=== PATIENT | female | born 1945 | race Caucasian/White ===

== ENCOUNTER 2017-04-27 11:43 | Inpatient (IN) | payer MEDICARE, OTHER ==
[2017-04-27] VITALS (8 sets, daily range): BP systolic 117–158; BP diastolic 55–71; PULSE 59–65; RESP 16–20; TEMP 97.9–100.6; O2SAT 99–100
[~2017-04-27] VITALS: Ht 157.5 cm; Wt 96.9 kg
[~2017-04-27 11:43] MED LIST: COUM5TAB PO; DUONI NEB; FERR324T4 PO; FURO20 PO; GLIM2TAB PO; LISI2.5T3 PO; METO50TA PO; NORC7.5T PO; PROM25SU8 PO; PROT40TA PO; PROZ20CA11 PO; PROZ40CA PO; SPIR50TA21 PO
[2017-04-27] MEDS ORDERED: SODIUM CHLOR 0.9% 1000 ML INJ 1,000 ML IV SCH (12:13)
--- NOTE | 2017-04-27 12:20 | PD ---
HPI Chief Complaint: fever, left lower extremity pain Time Seen by Provider: 12:07 Travel History International Travel<30 days: No Contact w/Intl Traveler<30days: No Traveled to known affect area: No History of Present Illness HPI This is a 71-year-old female who presents via EMS for evaluation. She is currently a resident of [facility]. According to EMS report the patient was found with a questionable left-sided facial droop by her nurse this morning. EMS did not appreciate any facial droop or change from her baseline neurologic status. She did have a elevated temperature of 99.6 as well as complaints of left lower extremity redness and pain. Upon questioning the patient reports that her left leg is been hurting her for the past few weeks. She does have a temperature 100.6 here. She is also had a cough for 1 month. Denies abdominal pain, nausea or vomiting, headache. No other complaints. The family members arrived shortly after examination. They report that the patient has been having generalized weakness for the past week. She has also seemed more confused, forgetful over the past several days as well. They report her PCP is Dr. Villar. [facility] Past Medical History Hx Anticoagulant Therapy: Yes (coumadin) Arthritis: Yes Autoimmune Disease: Yes (FIBROMYALGIA) Anxiety: Yes Depression: Yes Heart Rhythm Problems: Yes (PAT, not since her AICD meds) Cancer: No Cardiovascular Problems: Yes (htn; defib; gayle 2014) Congestive Heart Failure: Yes COPD: Yes Cerebrovascular Accident: Yes (questionable) Diabetes: Yes (type 2) Diminished Hearing: No Endocrine: Yes Glaucoma: Yes Genitourinary: Yes ("watching kidney function and sched for liver ultrasound Th) Hypertension: Yes Musculoskeletal: Yes Neurologic: Yes Psychiatric: No Reproductive: No Respiratory: Yes (copd. on 2l n/c at night) Ulcer: Yes Menopausal: Yes Past Surgical History AICD: Yes (new this year) Appendectomy: Yes Cardiac Surgery: Yes (AICD last year by Dr Borrero) Cholecystectomy: Yes Gynecologic Surgery: Yes (hysterectomy) Hysterectomy: Yes ( 30 YRS AGO) Pacemaker: Yes Social History Alcohol Use: Yes (socially) Tobacco Use: No Substance Use: No Allergies-Medications (Allergen,Severity, Reaction): Coded Allergies: No Known Allergies (Verified , 08/14/16) Reported Meds & Prescriptions Reported Meds & Active Scripts Active Reported Zofran (Ondansetron HCl) 4 Mg Tab 4 Mg PO Q6HR PRN Guaifenesin-Dm Liq (Guaifenesin/Dextromethorphan) 100-10 Mg/5 Ml Syrp 10 Ml PO Q6HR PRN Sugar Free [place] (Hydrocodone-Acetaminophen) 7.5-325 mg Tab 1 Tab PO Q4H PRN Duoneb (Ipratropium-Albuterol Neb) 0.5-2.5 Mg/3 Ml Neb 3 Ml NEB Q6HR [address] (Ferrous Sulfate) 325 Mg Tabdr 325 Mg PO TID Augmentin (Amoxicillin-Clavulanate) 500-125 mg Tab 1 Tab PO TID 10 Days Minocin (Minocycline HCl) 100 Mg Cap 100 Mg PO BID 42 Days X 6 WEEKS Metoprolol Tartrate 25 Mg Tab 25 Mg PO Q12HR Humalog Inj (Insulin Human Lispro) 1,000 Unit/10 Ml Vial 2-10 Units SQ BID Sliding Scale: if 151-200=2 units, call MD if <70, 201-250=4 units, 251-300=6 units, 301-350=8 units, 351-400=10 units, call MD if >401; twice a day before breakfast and at bedtime Colace (Docusate Sodium) 100 Mg Capsule 100 Mg PO Q12HR Diff-Stat (Probiotic Product) 1 Cap Cap 1 Cap PO BID 60 Days Eliquis (Apixaban) 2.5 Mg Tab 2.5 Mg PO BID Xanax (Alprazolam) 0.5 Mg Tab 0.5 Mg PO HS Hold for sedation Xalatan Opth Drops (Latanoprost) 0.005% Drops 1 Drop EACH EYE HS Tradjenta (Linagliptin) 5 Mg Tab 5 Mg PO DAILY Prozac (Fluoxetine HCl) 20 Mg Cap 40 Mg PO HS Potassium Chloride ER (Potassium Chloride) 10 Meq Cap 10 Meq PO DAILY Multi-Vitamin/Minerals (Multiple Vitamins W/ Minerals) 1 Tab Tab 1 Tab PO DAILY Miralax Powder (Polyethylene Glycol 3350 Powder) 17 Gm Powd 17 Gm PO DAILY Mix and dissolve one measuring capful (17 grams) in water or juice. Magnesium Oxide 500 Mg Tab 500 Mg PO DAILY Levothyroxine (Levothyroxine Sodium) 112 Mcg Tab 112 Mcg PO DAILY Lasix (Furosemide) 20 Mg Tab 20 Mg PO DAILY Ergocalciferol 50,000 Unit Cap 50,000 Units PO WEEKLY Saturdays Shadieddita DR (Duloxetine HCl) 30 Mg Capdr 30 Mg PO DAILY Vitamin D3 (Cholecalciferol) 1,000 Unit Tab 2,000 Units PO DAILY Review of Systems Except as stated in HPI: all other systems reviewed are Neg Physical Exam Narrative GENERAL: Well-developed well-nourished female in no acute distress. Alert and oriented to person, place but not time. SKIN: Warm and dry. The patient has erythema on the left lower extremity. She has a wound with a dressing in the left groin region. There is no purulent drainage. HEAD: Atraumatic. Normocephalic. EYES: Pupils equal and round. No scleral icterus. No injection or drainage. ENT: No nasal bleeding or discharge. Mucous membranes pink and moist. NECK: Trachea midline. No JVD. CARDIOVASCULAR: Regular rate and rhythm. No murmur appreciated. RESPIRATORY: No accessory muscle use. Clear to auscultation. Breath sounds equal bilaterally. GASTROINTESTINAL: Abdomen soft, non-tender, nondistended. Hepatic and splenic margins not palpable. MUSCULOSKELETAL: No obvious deformities. No clubbing. No cyanosis. No edema. NEUROLOGICAL: Awake and alert. No obvious cranial nerve deficits. Motor grossly within normal limits. Normal speech. No facial droop. No upper extremity drift. Decreased enamel applier strength left hand secondary to a previous hand injury, baseline. Data Data Last Documented VS Vital Signs Date Time Temp Pulse Resp B/P Pulse Ox O2 Delivery O2 Flow Rate FiO2 04/27/17 13:30 99.1 65 17 158/67 100 Nasal Cannula 2 Orders Complete Blood Count With Diff (04/27/17 12:13) Comprehensive Metabolic Panel (04/27/17 12:13) Prothrombin Time / Inr (Pt) (04/27/17 12:13) Act Partial Throm Time (Ptt) (04/27/17 12:13) Lactic Acid Sepsis Protocol (04/27/17 12:13) Urinalysis - C+S If Indicated (04/27/17 12:13) Blood Culture (04/27/17 12:13) Wound Culture And Gram Stain (04/27/17 12:13) Chest, Single Ap (04/27/17 12:13) Blood Glucose (04/27/17 12:13) Ecg Monitoring (04/27/17 12:13) Iv Access Insert/Monitor (04/27/17 12:13) Oximetry (04/27/17 12:13) Oxygen Administration (04/27/17 12:13) Sodium Chlor 0.9% 1000 Ml Inj (Ns 1000 M (04/27/17 12:13) Sodium Chlor 0.9% 1000 Ml Inj (Ns 1000 M (04/27/17 12:13) Ct Brain W/O Iv Contrast(Rout) (04/27/17 ) Us Leg Venous Doppler (04/27/17 12:13) Acetaminophen (Tylenol) (04/27/17 12:30) Vancomycin Inj (Vancomycin Inj) (04/27/17 12:30) Piperacil-Tazo 3.375 Gm Premix (Zosyn 3. (04/27/17 12:30) Lactic Acid (04/27/17 14:35) Labs Laboratory Tests Test 04/27/17 04/27/17 12:20 12:50 White Blood Count 9.6 TH/MM3 Red Blood Count 3.65 MIL/MM3 Hemoglobin 9.9 GM/DL Hematocrit 31.1 % Mean Corpuscular Volume 85.1 FL Mean Corpuscular Hemoglobin 27.0 PG Mean Corpuscular Hemoglobin 31.8 % Concent Red Cell Distribution Width 16.9 % Platelet Count 201 TH/MM3 Mean Platelet Volume 8.5 FL Neutrophils (%) (Auto) 86.4 % Lymphocytes (%) (Auto) 7.4 % Monocytes (%) (Auto) 5.8 % Eosinophils (%) (Auto) 0.2 % Basophils (%) (Auto) 0.2 % Neutrophils # (Auto) 8.3 TH/MM3 Lymphocytes # (Auto) 0.7 TH/MM3 Monocytes # (Auto) 0.6 TH/MM3 Eosinophils # (Auto) 0.0 TH/MM3 Basophils # (Auto) 0.0 TH/MM3 CBC Comment DIFF FINAL Differential Comment Prothrombin Time 13.5 SEC Prothromb Time International 1.2 RATIO Ratio Activated Partial 37.5 SEC Thromboplast Time Sodium Level 138 MEQ/L Potassium Level 4.5 MEQ/L Chloride Level 103 MEQ/L Carbon Dioxide Level 28.3 MEQ/L Anion Gap 7 MEQ/L Blood Urea Nitrogen 27 MG/DL Creatinine 1.58 MG/DL Estimat Glomerular Filtration 32 ML/MIN Rate Random Glucose 171 MG/DL Lactic Acid Level 2.2 mmol/L Calcium Level 10.3 MG/DL Total Bilirubin 1.4 MG/DL Aspartate Amino Transf 20 U/L (AST/SGOT) Alanine Aminotransferase 14 U/L (ALT/SGPT) Alkaline Phosphatase 163 U/L Total Protein 5.5 GM/DL Albumin 2.3 GM/DL Urine Color YELLOW Urine Turbidity CLEAR Urine pH 5.5 Urine Specific [place] 1.017 Urine Protein TRACE mg/dL Urine Glucose (UA) NEG mg/dL Urine Ketones NEG mg/dL Urine Occult Blood NEG Urine Nitrite NEG Urine Bilirubin NEG Urine Urobilinogen LESS THAN 2.0 MG/DL Urine Leukocyte Esterase NEG Urine RBC LESS THAN 1 /hpf Urine WBC 1 /hpf Urine Squamous Epithelial <1 /hpf Cells Urine Hyaline Casts 4 /lpf Urine Mucus FEW /lpf Microscopic Urinalysis Comment CATH-CULT NOT IND MDM Medical Decision Making Medical Screen Exam Complete: Yes Emergency Medical Condition: Yes Medical Record Reviewed: Yes Differential Diagnosis Cellulitis, sepsis, bronchitis, pneumonia, UTI, CVA, TIA Narrative Course 71-year-old female who was sent here for evaluation of elevated temperature, left lower extremity erythema and questionable left-sided facial droop this morning. On examination there is no appreciable facial droop. Her temperature is elevated at 100.6. She has left lower extremity cellulitic changes. She has a wound which had a bandage on it in the left groin. A wound culture has been performed. Plan is for basic lab work, chest x-ray, urinalysis. Lab work reveals lactic acid 2.2 daily BC count is 86% neutrophils. Hemoglobin is 9.9 which is baseline. The plan is to admit the patient for cellulitis. Discussed with Dr. Bai who is agreeable with admission. Diagnosis Primary Impression: Cellulitis of left lower extremity Admitting Information Admitting Physician Requests: Admit Brenden Green Apr 27, 2017 12:20
[2017-04-27] MEDS: SODIUM CHLOR 0.9% 1000 ML INJ 1,000 ML IV SCH ×3 (12:23→15:54)
[2017-04-27] MEDS ORDERED: ACETAMINOPHEN 325 MG TAB PO ONE (12:30)
[2017-04-27] MEDS ORDERED: VANCOMYCIN INJ 1,000 MG in SODIUM CHLOR 0.9% 250 ML INJ 250 ML IV ONE (12:30)
[2017-04-27] MEDS ORDERED: PIPERACIL-TAZO 3.375 GM PREMIX 50 ML IV ONE (12:30)
--- NOTE | 2017-04-27 12:54 | RADRPT ---
EXAM DATE/TIME: 04/27/2017 12:18 [facility] COMPARISON: No previous studies available for comparison. INDICATIONS : Cough and fever. MEDICAL HISTORY : Hypertension. Diabetes mellitus type II. Congestive heart failure. Hypertension SURGICAL HISTORY : CABG. Pacemaker. Appendectomy. Cholecystectomy ENCOUNTER: Initial ACUITY: 1 day PAIN SCORE: 0/10 LOCATION: Bilateral chest FINDINGS: A single view of the chest demonstrates slight elevation right hemidiaphragm. Lungs are relatively cl ear although there is some subsegmental atelectasis left lung base. Heart enlarged. Previous median s ternotomy. Left-sided pacemaker unchanged. Osseous structures are intact. CONCLUSION: Chronic elevation right hemidiaphragm. Left basilar subsegmental atelectasis. Cardiomegaly. Andrew Glass MD on April 27, 2017 at 12:47 Board Certified Radiologist. This report was verified electronically.
[2017-04-27] MEDS ORDERED: FERR325T2 PO (12:59)
[2017-04-27] MEDS ORDERED: METO25TA3 PO (12:59)
[2017-04-27] MEDS ORDERED: FURO1TAB62 PO (12:59)
[2017-04-27] MEDS ORDERED: MINO1CAP PO (12:59)
[2017-04-27] MEDS ORDERED: LEVO-168 PO (12:59)
[2017-04-27] MEDS ORDERED: CYMB30CA PO (12:59)
[2017-04-27] MEDS ORDERED: ERGO1CAP30 PO (12:59)
[2017-04-27] MEDS ORDERED: APIX2.5T PO (12:59)
[2017-04-27] MEDS ORDERED: PROZ20CA11 PO (12:59)
[2017-04-27] MEDS ORDERED: HUMALOG SQ (12:59)
[2017-04-27] MEDS ORDERED: POTA10CA PO (12:59)
[2017-04-27] MEDS ORDERED: LATA.005%O EACH EYE (12:59)
[2017-04-27] MEDS ORDERED: TRAD5TAB PO (12:59)
[2017-04-27] MEDS ORDERED: MAGN500T2 PO (12:59)
[2017-04-27] MEDS ORDERED: MULTTAB62 PO (12:59)
[2017-04-27] MEDS ORDERED: COLA100C PO (12:59)
[2017-04-27] MEDS ORDERED: ALPR.5 PO (12:59)
[2017-04-27] MEDS ORDERED: MIRA3350 PO (12:59)
[2017-04-27] MEDS ORDERED: VITA100018 PO (12:59)
[2017-04-27] MEDS ORDERED: AUGM500T7 PO (12:59)
[2017-04-27] MEDS ORDERED: DIFFCHW PO (12:59)
[2017-04-27 13:10] LABS: AUTOMATED NEUTROPHIL # 8.3 TH/MM3 (1.8-7.7); BASOPHIL % 0.2 % (0.0-2.0); EOSINOPHIL % 0.2 % (0.0-4.0); HEMATOCRIT 31.1 % (35.0-46.0); HEMO FLAGS DIFF FINAL; LYMPH % 7.4 % (9.0-44.0); LYMPHOCYTE # 0.7 TH/MM3 (1.0-4.8); MEAN CELL VOLUME 85.1 FL (80.0-100.0); MEAN CORPUSCULAR HGB CONC 31.8 % (32.0-36.0); MONO % 5.8 % (0.0-8.0); NEUT % 86.4 % (16.0-70.0); PLATELET COUNT 201 TH/MM3 (150-450); RED BLOOD COUNT 3.65 MIL/MM3 (4.00-5.30); RED CELL DISTRIBUTION WIDTH 16.9 % (11.6-17.2); WHITE BLOOD COUNT 9.6 TH/MM3 (4.0-11.0)
[2017-04-27] MEDS ORDERED: IPRASOL NEB (13:11)
[2017-04-27] MEDS ORDERED: ROBIDM5S PO (13:16)
[2017-04-27] MEDS ORDERED: HYDR-3288 PO (13:16)
[2017-04-27] MEDS ORDERED: ZOFR4TAB PO (13:16)
[2017-04-27 13:20] LABS: APTT (PATIENT) 37.5 SEC (24.3-30.1); INTERNATIONAL NORMALIZED RATIO 1.2 RATIO; PROTHROMBIN TIME - PATIENT 13.5 SEC (9.8-11.6)
[2017-04-27 13:35] LABS: ANION GAP 7 MEQ/L (5-15); AST (GOT) 20 U/L (15-37); BICARBONATE 28.3 MEQ/L (21.0-32.0); BLOOD UREA NITROGEN 27 MG/DL (7-18); CHLORIDE 103 MEQ/L (98-107); GLOMERULAR FILTRATION RATE 32 ML/MIN (>89); POTASSIUM 4.5 MEQ/L (3.5-5.1); SODIUM (NA) 138 MEQ/L (136-145)
[2017-04-27 13:36] LABS: ALT (GPT) 14 U/L (10-53)
[2017-04-27 13:38] LABS: ALKALINE PHOSPHATASE 163 U/L (45-117); TOTAL BILIRUBIN ADULT 1.4 MG/DL (0.2-1.0)
[2017-04-27 13:54] LABS: BLOOD, URINE NEG (NEG); COMMENT (UR) CATH-CULT NOT IND; CULTURE IF INDICATED CATH CULTURE NOT IND; GLUCOSE,URINE NEG (NEG); HYALINE CAST, URINE 4 /lpf (RARE); KETONE, URINE NEG (NEG); MUCUS URINE FEW /lpf (OCC); NITRITE,URINE NEG (NEG); PH, URINE 5.5 (5.0-8.5); SQUAMOUS EPITHELIAL CELL URINE <1 /hpf (0-5); URINE COLOR YELLOW (YELLW/STRAW)
--- NOTE | 2017-04-27 14:00 | RADRPT ---
EXAM DATE/TIME: 04/27/2017 12:57 [facility] COMPARISON: No previous studies available for comparison. INDICATIONS : Left leg redness. MEDICAL HISTORY : Chronic obstructive pulmonary disease. Congestive heart failure. Hypertension. CVA. Ulcer. Fibromy algia. Arthritis. Diabetes. SURGICAL HISTORY : Appendectomy. Cholecystectomy. Hysterectomy. Pacemaker. ENCOUNTER: Initial ACUITY: 1 day PAIN SCORE: 7/10 LOCATION: Left leg. TECHNIQUE: Venous ultrasound of the leg was performed from the inguinal ligament to the proximal calf. Real-madhu e, color Doppler and spectral tracing, compression and augmentation techniques were used. FINDINGS: No some of the posterior tibial veins are not well-demonstrated primarily due to edema and patient's body habitus. Otherwise, there is normal compressibility of the deep venous system from the inguinal region to the proximal calf. No echogenic clot is seen in the lumen of the common femoral, femoral, popliteal, and posterior tibial veins. There is a normal response of the venous system to proximal a nd distal augmentation and respiration. CONCLUSION: 1. Suboptimal evaluation of the calf veins primarily due to body habitus and edema. 2. Otherwise, no sonographic evidence for left lower extremity DVT. Warren Rodriguez MD on April 27, 2017 at 13:56 Board Certified Radiologist. This report was verified electronically.
--- NOTE | 2017-04-27 14:41 | RADRPT ---
EXAM DATE/TIME: 04/27/2017 14:23 [facility] COMPARISON: No previous studies available for comparison. INDICATIONS : Evaluate for altered mental status. RADIATION DOSE: 56.35 CTDIvol (mGy) MEDICAL HISTORY : Cardiovascular disease. Hypertension. Chronic obstructive pulmonary disease.Fibromyalgia. SURGICAL HISTORY : Defibrillator. ENCOUNTER: Initial ACUITY: 1 day PAIN SCALE: 4/10 LOCATION: Bilateral cranial TECHNIQUE: Multiple contiguous axial images were obtained of the head. Using automated exposure control and adj ustment of the mA and/or kV according to patient size, radiation dose was kept as low as reasonably a chievable to obtain optimal diagnostic quality images. FINDINGS: There is marked central and cortical atrophy with dilatation of ventricular and sulcal spaces. Areas of low-attenuation are seen throughout the white matter. There is no parenchymal hemorrhage, acute in farction or mass lesion identified. There are no extra-axial fluid collections appreciated. The pos terior fossa is unremarkable with midline fourth ventricle. The portion of the orbits and paranasal sinuses visualized are unremarkable. Calcified right frontal soft tissue nodule is stable. CONCLUSION: 1. Cerebral atrophy and chronic ischemic small vessel vasculopathy. 2. No acute intracranial abnormality. Andrew Glass MD on April 27, 2017 at 14:37 Board Certified Radiologist. This report was verified electronically.
[2017-04-27 14:46] LABS: LACTIC ACID GHOST NOT REPORTABLE
[2017-04-27] MEDS ORDERED: SENNOSIDES 8.6 MG TAB PO PRN (15:30)
[2017-04-27] MEDS ORDERED: guaiFENesin/DEXTROMETHORPHAN 200 MG/20 MG/10 ML CUP PO PRN (15:30)
[2017-04-27] MEDS ORDERED: SODIUM CHLORIDE 0.9% FLUSH 10 ML FLUSH IV FLUSH PRN (15:30)
[2017-04-27] MEDS ORDERED: ACETAMINOPHEN 325 MG TAB PO PRN (15:30)
[2017-04-27] MEDS ORDERED: LACTULOSE SYRUP 20 GM/30 ML CUP PO PRN (15:30)
[2017-04-27] MEDS ORDERED: BISACODYL 10 MG SUPP RECTAL PRN (15:30)
[2017-04-27] MEDS ORDERED: MAGNESIUM HYDROXIDE SUSP 30 ML CUP PO PRN (15:30)
[2017-04-27] MEDS ORDERED: NALOXONE HCL 0.4 MG/ML AMP IV PRN ×2 (15:30)
[2017-04-27] MEDS ORDERED: Vancomycin Consult Pharmacy 1 EA OTHER SCH (15:30)
[2017-04-27] MEDS ORDERED: ONDANSETRON HCL 4 MG/2 ML VIAL IVP PRN (15:30)
--- NOTE | 2017-04-27 15:43 | HHI.HP ---
Altered Mental Status HPI Service [facility] Primary Care Physician Ren Vickers MD Admission Diagnosis LLE CELLULITIS Diagnoses: Chief Complaint: Fever and left Lower extremity pain. Travel History International Travel<30 Days: No Contact w/Intl Traveler <30 Da: No Traveled to Known Affected Are: No History of Present Illness This is a 71-year-old female who presents via EMS for evaluation. She is currently a resident of [facility] rehabilitation. According to EMS report the patient was found with a questionable left-sided facial droop by her nurse this morning. EMS did not appreciate any facial droop or change from her baseline neurologic status. She did have a elevated temperature of 99.6 as well as complaints of left lower extremity redness and pain. Upon questioning the patient reports that her left leg is been hurting her for the past few weeks. She does have a temperature 100.6 here. She is also had a cough for 1 month. Denies abdominal pain, nausea or vomiting, headache. No other complaints. The family members arrived shortly after examination. They report that the patient has been having generalized weakness for the past week. She has also seemed more confused, forgetful over the past several days as well. Seen in her bedroom in Emergency Room in the presence of pacemaker natural gas technician she had one episode of firing some days ago, seen in the presence of her Son Mr. Gerson Rodriguez and her Daughter Mrs. Jeri Lima, they were called in am for change in status, from her [facility], she is improving her Altered Mental status, has continuous drainage from anterior groin area status post Left total hip hemiarthroplasty and then again had new fracture new procedure performed she has been followed by her Primary youth career specialist Doctor Jordy who suspected acute Pneumonia and wanted to confirm with new study not clear on the chest X ray taken here but the patient has her mouth with Purulent tissue in and as per relative cough. Past Family Social History Past Medical History OA Fibromyalgia Anxiety disorder Depression PAF not since AICD and Medicines. CAD Hypertension CHF COPD DM II Past Surgical History AICD placement Appendectomy Cholecystectomy DOLORES Reported Medications Reported Meds & Active Scripts Active Reported Zofran (Ondansetron HCl) 4 Mg Tab 4 Mg PO Q6HR PRN Guaifenesin-Dm Liq (Guaifenesin/Dextromethorphan) 100-10 Mg/5 Ml Syrp 10 Ml PO Q6HR PRN Sugar Free [place] (Hydrocodone-Acetaminophen) 7.5-325 mg Tab 1 Tab PO Q4H PRN Duoneb (Ipratropium-Albuterol Neb) 0.5-2.5 Mg/3 Ml Neb 3 Ml NEB Q6HR [address] (Ferrous Sulfate) 325 Mg Tabdr 325 Mg PO TID Augmentin (Amoxicillin-Clavulanate) 500-125 mg Tab 1 Tab PO TID 10 Days Minocin (Minocycline HCl) 100 Mg Cap 100 Mg PO BID 42 Days X 6 WEEKS Metoprolol Tartrate 25 Mg Tab 25 Mg PO Q12HR Humalog Inj (Insulin Human Lispro) 1,000 Unit/10 Ml Vial 2-10 Units SQ BID Sliding Scale: if 151-200=2 units, call MD if <70, 201-250=4 units, 251-300=6 units, 301-350=8 units, 351-400=10 units, call MD if >401; twice a day before breakfast and at bedtime Colace (Docusate Sodium) 100 Mg Capsule 100 Mg PO Q12HR Diff-Stat (Probiotic Product) 1 Cap Cap 1 Cap PO BID 60 Days Eliquis (Apixaban) 2.5 Mg Tab 2.5 Mg PO BID Xanax (Alprazolam) 0.5 Mg Tab 0.5 Mg PO HS Hold for sedation Xalatan Opth Drops (Latanoprost) 0.005% Drops 1 Drop EACH EYE HS Tradjenta (Linagliptin) 5 Mg Tab 5 Mg PO DAILY Prozac (Fluoxetine HCl) 20 Mg Cap 40 Mg PO HS Potassium Chloride ER (Potassium Chloride) 10 Meq Cap 10 Meq PO DAILY Multi-Vitamin/Minerals (Multiple Vitamins W/ Minerals) 1 Tab Tab 1 Tab PO DAILY Miralax Powder (Polyethylene Glycol 3350 Powder) 17 Gm Powd 17 Gm PO DAILY Mix and dissolve one measuring capful (17 grams) in water or juice. Magnesium Oxide 500 Mg Tab 500 Mg PO DAILY Levothyroxine (Levothyroxine Sodium) 112 Mcg Tab 112 Mcg PO DAILY Lasix (Furosemide) 20 Mg Tab 20 Mg PO DAILY Ergocalciferol 50,000 Unit Cap 50,000 Units PO WEEKLY Saturdays Cymbalta DR (Duloxetine HCl) 30 Mg Capdr 30 Mg PO DAILY Vitamin D3 (Cholecalciferol) 1,000 Unit Tab 2,000 Units PO DAILY Allergies: Coded Allergies: No Known Allergies (Verified , 08/14/16) Active Ordered Medications Current Medications Medications (Trade) Dose Ordered Sig/Marbin Route Start Time Stop Time Status Last Admin (Xanax) 0.5 mg HS PO 04/27/17 21:00 UNV (Eliquis) 2.5 mg BID PO 04/27/17 21:00 UNV (Vitamin D3) 2,000 units DAILY PO 04/28/17 09:00 UNV (Cymbalta Dr) 30 mg DAILY PO 04/28/17 09:00 UNV (PROzac) 40 mg HS PO 04/27/17 21:00 UNV (Lasix) 20 mg DAILY PO 04/28/17 09:00 UNV (Robitussin Dm 200-20 Mg/10 ml Liq) 10 ml Q6HR PRN PO 04/27/17 15:30 UNV ([place] 7.5-325 Mg) 1 tab Q4H PRN PO 04/27/17 15:30 UNV (Xalatan 0.005% Opth Soln) 1 drop HS EACH EYE 04/27/17 21:00 UNV (Synthroid) 112 mcg DAILY PO 04/28/17 09:00 UNV (Lopressor) 25 mg Q12HR PO 04/27/17 21:00 UNV (KCl) 10 meq DAILY PO 04/28/17 09:00 UNV Non-Formulary Medication 325 mg TID PO 04/27/17 18:00 UNV Non-Formulary Medication 500 mg DAILY PO 04/28/17 09:00 UNV Non-Formulary Medication 1 tab DAILY PO 04/28/17 09:00 UNV Non-Formulary Medication 1 cap 1 cap BID PO 04/27/17 21:00 UNV (NS 1000 ml Inj) 1,000 ml @ 100 mls/hr Q10H IV 04/27/17 15:20 UNV (NS Flush) 2 ml UNSCH PRN IV FLUSH 04/27/17 15:30 UNV (NS Flush) 2 ml BID IV FLUSH 04/27/17 21:00 UNV (Tylenol) 650 mg Q4H PRN PO 04/27/17 15:30 UNV (Zofran Inj) 4 mg Q6H PRN IVP 04/27/17 15:30 UNV (Narcan Inj) 0.4 mg UNSCH PRN IV 04/27/17 15:30 UNV (Tiffanie-Colace) 1 tab BID PO 04/27/17 21:00 UNV (Milk Of Magnesia Liq) 30 ml Q12H PRN PO 04/27/17 15:30 UNV (Senokot) 17.2 mg Q12H PRN PO 04/27/17 15:30 UNV (Dulcolax Supp) 10 mg DAILY PRN RECTAL 04/27/17 15:30 UNV Lactulose 30 ml 30 ml DAILY PRN PO 04/27/17 15:30 UNV Pharmacy Profile Note 0 ml @ 0 mls/hr UNSCH OTHER 04/27/17 15:30 UNV (Zosyn 3.375 Gm Premix) 50 ml @ 100 mls/hr Q6H IV 04/27/17 18:30 UNV (Narcan Inj) 0.4 mg UNSCH PRN IV 04/27/17 15:30 UNV Family History Mother with Liver Cancer Father with CAD. Social History Lives in a Rehab facility and denies toxic habits. Physical Exam Vital Signs Vital Signs Date Time Temp Pulse Resp B/P Pulse Ox O2 Delivery O2 Flow Rate FiO2 04/27/17 13:30 99.1 65 17 158/67 100 Nasal Cannula 2 04/27/17 12:24 100 Nasal Cannula 3 04/27/17 12:24 17 100 Nasal Cannula 3 04/27/17 12:10 18 100 Nasal Cannula 3 04/27/17 12:07 100.6 65 17 128/71 100 Physical Exam GENERAL: Obesity, oriented in person and place. SKIN: Warm and dry. The patient has erythema on the left lower extremity. She has a wound with a dressing in the left groin region. no drainage at this time HEAD: Atraumatic. Normocephalic. EYES: Pupils equal and round. No scleral icterus. No injection or drainage. ENT: No nasal bleeding or discharge. Mucous membranes pink and moist. NECK: Trachea midline. No JVD. CARDIOVASCULAR: Regular rate and rhythm. Systolic murmur appreciated. RESPIRATORY: No accessory muscle use. Clear to auscultation. Breath sounds equal bilaterally. GASTROINTESTINAL: Abdomen soft, non-tender, nondistended. Hepatic and splenic margins not palpable. MUSCULOSKELETAL: No obvious deformities. No clubbing. No cyanosis. No edema. NEUROLOGICAL: Awake and alert. No obvious cranial nerve deficits. Motor grossly within normal limits. Normal speech. No facial droop. No upper extremity drift. Decreased screed person strength left hand secondary to a previous hand injury, baseline. Laboratory Laboratory Tests Test 04/27/17 04/27/17 12:20 12:50 White Blood Count 9.6 Red Blood Count 3.65 Hemoglobin 9.9 Hematocrit 31.1 Mean Corpuscular Volume 85.1 Mean Corpuscular Hemoglobin 27.0 Mean Corpuscular Hemoglobin 31.8 Concent Red Cell Distribution Width 16.9 Platelet Count 201 Mean Platelet Volume 8.5 Neutrophils (%) (Auto) 86.4 Lymphocytes (%) (Auto) 7.4 Monocytes (%) (Auto) 5.8 Eosinophils (%) (Auto) 0.2 Basophils (%) (Auto) 0.2 Neutrophils # (Auto) 8.3 Lymphocytes # (Auto) 0.7 Monocytes # (Auto) 0.6 Eosinophils # (Auto) 0.0 Basophils # (Auto) 0.0 CBC Comment DIFF FINAL Differential Comment Prothrombin Time 13.5 Prothromb Time International 1.2 Ratio Activated Partial 37.5 Thromboplast Time Sodium Level 138 Potassium Level 4.5 Chloride Level 103 Carbon Dioxide Level 28.3 Anion Gap 7 Blood Urea Nitrogen 27 Creatinine 1.58 Estimat Glomerular Filtration 32 Rate Random Glucose 171 Lactic Acid Level 2.2 Calcium Level 10.3 Total Bilirubin 1.4 Aspartate Amino Transf 20 (AST/SGOT) Alanine Aminotransferase 14 (ALT/SGPT) Alkaline Phosphatase 163 Total Protein 5.5 Albumin 2.3 Urine Color YELLOW Urine Turbidity CLEAR Urine pH 5.5 Urine Specific Gila 1.017 Urine Protein TRACE Urine Glucose (UA) NEG Urine Ketones NEG Urine Occult Blood NEG Urine Nitrite NEG Urine Bilirubin NEG Urine Urobilinogen LESS THAN 2.0 Urine Leukocyte Esterase NEG Urine RBC LESS THAN 1 Urine WBC 1 Urine Squamous Epithelial <1 Cells Urine Hyaline Casts 4 Urine Mucus FEW Microscopic Urinalysis Comment CATH-CULT NOT IND Date/Time Procedure Status Source Growth 04/27/17 12:50 Gram Stain Received Wound Leg Pending 04/27/17 12:50 Wound Culture Received Wound Leg Pending 04/27/17 12:25 Aerobic Blood Culture Received Blood Peripheral Pending 04/27/17 12:25 Anaerobic Blood Culture Received Blood Peripheral Pending Result Diagram: 04/27/17 1220 04/27/17 1220 Imaging Last Impressions Lower Extremity Ultrasound 04/27/17 1213 Signed Impressions: Service Date/Time: Thursday, April 27, 2017 12:57 - CONCLUSION: 1. Suboptimal evaluation of the calf veins primarily due to body habitus and edema. 2. Otherwise, no sonographic evidence for left lower extremity DVT. Warren Rodriguez MD Chest X-Ray 04/27/17 1213 Signed Impressions: Service Date/Time: Thursday, April 27, 2017 12:18 - CONCLUSION: Chronic elevation right hemidiaphragm. Left basilar subsegmental atelectasis. Cardiomegaly. Andrew Glass MD Head CT 04/27/17 0000 Signed Impressions: Service Date/Time: Thursday, April 27, 2017 14:23 - CONCLUSION: 1. Cerebral atrophy and chronic ischemic small vessel vasculopathy. 2. No acute intracranial abnormality. Andrew Glass MD Assessment and Plan Assessment and Plan 1. SIRS probable secondary to Left leg cellulitis, and also found purulent tissue in her mouth and cough probable secondary to Pneumonia asked for CT chest to confirm it, following blood cultures, Legionella antigen, Pneumococcal antigen, Vancomycin and Zosyn and follow ID and youth career specialist recommendations she had yesterday follow up by Doctor Jordy who wanted Imaging tests and started her on antibiotics. has appointment as outpatient with ID specialist but could not get it. 2. Left Leg Cellulitis wound care to follow, start antibiotics. 3. Questionable facial droop CT grain negative for acute infarct, or hemorrhage 4. OA by History/Fibromyalgia 5. Anxiety disorder/Depression to continue Home medicines 6. PAF status post AICD and Medicines continue, at this time Pacemaker Interrogated she had fired her AICD 7. CAD/Hypertension/CHF continue present care she needs some IV fluids will follow BNP in am tomorrow 8. COPD on Bronchodilator, Mucolytic and incentive spirometry. 9. DM II continue sliding scale for now 10. Obesity strongly recommended diet and exercise 11. Deconditioning, she is been in Rehab but not improving her Rehab has been terminated for May 03 and will be discharged but not improving, got PT eval and Senior Lead Project Manager here DVT prophylaxis with Eliquis Discussed with ER PA and with her Son and Daughter in ER appreciated, all questions answered to the best of my abilities. Code Status Full Code. Discussed Condition With Patient, ER PA and son and Daughter. Physician Certification 2 Midnight Certification Type: Admission for Inpatient Services Order for Inpatient Services The services are ordered in accordance with Medicare regulations or non- Medicare payer requirements, as applicable. In the case of services not specified as inpatient-only, they are appropriately provided as inpatient services in accordance with the 2-midnight benchmark. Estimated LOS (days): 3 days is the estimated time the patient will need to remain in the hospital, assuming treatment plan goals are met and no additional complications. Post-Hospital Plan: SNF Dariusz Ayala MD Apr 27, 2017 15:43
[2017-04-27] MEDS ORDERED: GLUCAGON 1 MG/ML VIAL OTHER PRN (16:00)
[2017-04-27] MEDS ORDERED: DEXTROSE 50% IN WATER 50 ML VIAL(D50) IV PUSH PRN (16:00)
[2017-04-27] MEDS: INSULIN NovoLIN REGULAR SUPPLEMENTAL SCALE SQ SCH ×2 (16:15→21:00)
--- NOTE | 2017-04-27 17:28 | RADRPT ---
EXAM DATE/TIME: 04/27/2017 17:01 [place] COMPARISON: CT SHOULDER LEFT W/O CONTRAST, August 14, 2016, 20:20. CT BRAIN W/O CONTRAST, April 27, 2017, 14:23. INDICATIONS : Evaluate for pneumonia. RADIATION DOSE: 6.31 CTDIvol (mGy) MEDICAL HISTORY : Cardiovascular disease. Chronic obstructive pulmonary disease. SURGICAL HISTORY : Pacemaker. Hysterectomy. ENCOUNTER: Initial ACUITY: 1 day PAIN SCALE: 0/10 LOCATION: Bilateral chest TECHNIQUE: Volumetric scanning of the chest was performed. Using automated exposure control and adjustment of t he mA and/or kV according to patient size, radiation dose was kept as low as reasonably achievable to obtain optimal diagnostic quality images. FINDINGS: The examination demonstrates advanced cardiomegaly. There is no significant hilar or mediastinal emeka opathy. There is a transvenous pacer. No pericardial effusion is present. Imaging through the pulmonary parenchyma demonstrates COPD changes. There is a small effusion at the left base and dependent atelectasis. No definite lobar pneumonia is evident. Imaging through the upper abdomen demonstrates ascites. There is enlargement of the spleen. There are granulomatous calcifications within the spleen. The liver appears somewhat heterogeneous suggesting cirrhosis. The visualized osseous structures demonstrate degenerative changes. There is no fracture of the left shoulder. CONCLUSION: 1. Advanced cardiomegaly. 2. Minimal left basilar effusion and likely area of rounded atelectasis. 3. Ascites within the upper abdomen. 4. Enlargement of the spleen and possible cirrhosis. Boyd العراقي MD on April 27, 2017 at 17:08 Board Certified Radiologist. This report was verified electronically.
[2017-04-27] MEDS: FERROUS SULFATE 325 MG (65 MG ELEMENTAL IRON) TAB PO SCH (18:29)
[2017-04-27] MEDS: PIPERACIL-TAZO 3.375 GM PREMIX 50 ML IV SCH (18:30)
--- NOTE | 2017-04-27 19:46 | MB ---
cc: SISSY BUTTERFIELD DATE OF CONSULTATION 04/27/2017 REASON FOR CONSULTATION COPD and respiratory distress. HISTORY OF THE PRESENT ILLNESS This is 70-year-old white female who was admitted via the emergency room with cellulitis and possible sepsis as well as a mild stroke. The patient apparently was at the [place] re[facility] and is seeing rehab following left hip surgery more than 2 months ago. Has been mostly in bed, unable to stand up or move. She was running a fever over the past 2 days. She has started on antibiotics yesterday but has already been on antibiotics chronically for the past 6 weeks due to an infection in the left leg. This was given by the infectious disease specialist which included doxycycline 100 mg. The patient denied any shortness of breath but has had some cough and wheezing and orthopnea. She has had minimal sputum production. Following admission a CT scan of the chest was done. She apparently does have some atelectasis in the left lower chest. PAST MEDICAL HISTORY Past history has included: 1. History of left total hip hemiarthroplasty. 2. And a history for hip fracture. 3. She has had pneumonia on several occasions. 4. The patient has had hypertension. 5. Congestive heart failure. 6. COPD. 7. Diabetes mellitus type 2. 8. Anxiety and depression. 9. AICD placement. 10. Arrhythmias. 11. She had appendectomy. 12. Cholecystectomy. 13. And a total abdominal hysterectomy. 14. Does have arthritis. 15. And is severely deconditioned. SOCIAL HISTORY Habits, the patient has a remote history of smoking for over 20 years but not recently. No significant alcohol use. She lives at the senior living. MEDICATIONS Medication list: 1. [place] 7.5 mg q.i.d. p.r.n. 2. Zofran 4 mg q.6h as needed. 3. Eliquis 2.5 milligrams b.i.d. 4. Xanax 0.5 mg at bedtime. 5. Xalatan eye drops daily. 6. Tradjenta 5 mg tablet daily. 7. Prozac 40 milligrams at bedtime. 8. Potassium 10 mEq daily. 9. Levothyroxine 112 mcg a day. 10. Lasix 20 mg daily. 11. Cymbalta 30 mg daily. 12. Vitamin D3 2000 units daily. ALLERGIES None listed. REVIEW OF SYSTEMS The patient is complaining of nausea, epigastric distress. He has had mild leg swelling. Redness of the skin of the left leg. Denies any calf pain but has hip pains of the left side. She had weakness of her right upper extremity this morning. The patient has some urinary frequency as well. And she has depression with anxiety. PHYSICAL EXAMINATION GENERAL: This moderately obese, elderly lady in bed. She was pale and in no acute distress. She has no clubbing. There is mild peripheral edema. The left leg is swollen and some redness of the skin starting from the knee downwards. No calf tenderness. VITAL SIGNS: The blood pressure 150/70, pulse is 68, respirations 16, temperature 99.5. HEENT: Head normocephalic. Pupils are reactive and equal. Tongue is moist. Throat was clear. The lips are excoriated. Ears no inflammation. NECK: Supple without venous distension. Trachea midline. CHEST: Equal movements with decreased breath sounds of the bases with occasional wheezes bilaterally. Crackles at the left base. CARDIOVASCULAR: Heart sounds are regular S1-S2 with a systolic murmur 2/6 at the sternal border. ABDOMEN: Soft, protuberant without masses. No organomegaly or tenderness. Bowel sounds are active. EXTREMITIES: Left leg edema with redness of the skin from thigh downwards and the right leg has mild edema. The patient is unable to lift the left leg. She is moving the right extremities. Babinski negative. NEUROLOGIC: The patient has no focal neuro deficits. RECTAL: Exam is deferred. IMPRESSION 1. Left leg cellulitis with SIRS. 2. Possible early pneumonia left base. 3. COPD. 4. CHF, compensated. 5. History of hypertension. 6. Diabetes mellitus type 2. 7. Severe deconditioning. 8. Status post left hip arthroplasty. 9. Obstructive sleep apnea. PLAN The patient will be maintained on O2 at 2 liters. Nebulized DuoNeb solution added q.i.d. Continue with antibiotic coverage as ordered which include vancomycin and Zosyn. Cultures on blood, urine and sputum are pending. We will also get a follow up chest x-ray in a.m. and O2 will be placed at 2 liters. Incentive spirometry at bedside q.i.d. If she desaturates she will be placed on BiPap at nights at 08/12. Thank you Dr. Bai for this consultation. MD RADHA Alston/MARY /5:43 PM /7:27 PM
[2017-04-27] MEDS: SODIUM CHLORIDE 0.9% FLUSH 10 ML FLUSH IV FLUSH SCH (21:00)
[2017-04-27] MEDS: RESP: ALBUTEROL 2.5 MG/IPRATROPIUM 0.5 MG NEB (SCH) NEB (21:12)
[2017-04-27] MEDS: VANCOMYCIN INJ 1,500 MG in SODIUM CHLORID 0.9% 500 ML INJ 500 ML IV SCH (21:40)
[2017-04-27] MEDS: FLUoxetine HCL 20 MG CAP PO SCH (21:41)
[2017-04-27] MEDS: DOCUSATE SODIUM 50 MG/SENNA 8.6 MG TAB PO SCH (21:41)
[2017-04-27] MEDS: METOPROLOL TARTRATE 25 MG TAB PO SCH (21:41)
[2017-04-27] MEDS: APIXABAN 2.5 MG TABLET PO SCH (21:41)
[2017-04-27] MEDS: ALPRAZolam 0.5 MG TAB PO SCH (21:41)
[2017-04-27] MEDS: LACTOBACILLUS ACIDOPHILUS TAB PO SCH (21:42)
--- NOTE | 2017-04-27 23:58 | MB ---
cc: KIKA CAMARILLO MD DATE OF CONSULTATION: 04/27/[address] Bai. REASON FOR CONSULTATION: SIRS, probable hip infection on the left. Pneumonia. HISTORY OF PRESENT ILLNESS This is a 71-year-old white female who presented to emergency department with fever and left lower extremity pain. [facility] She was noted to have left-sided facial droop and weakness on the right upper extremity and they thought she had a stroke. She was brought to the emergency department for evaluation. In the emergency department, the patient's heart rate was 65 and white blood cell count was 9.6. She later was noted to have temperature of 100.6 degrees. She was also found to have erythema of the left lower extremity and was felt to have cellulitis. Blood cultures were taken and the wound culture was taken from the left hip wound and the result is pending. The patient was in the hospital after she sustained fracture of the left hip and she had a partial hip replacement and then she fell again and reinjured the leg in January. She had to have additional surgery and then she developed MRSA infection in the left hip and required a wound Vac and she was treated with IV antibiotics up until about a month ago and then she was switched to oral antibiotics. She was seen by an Infectious Disease physician for antibiotics. She is awake and alert and she has no facial droop currently and is moving the right upper extremity without difficulty. CT scan of the head showed cerebral atrophy and chronic ischemic small vessel vasculopathy. No acute intracranial abnormality. CT of the chest showed mild left basilar effusion and likely area of rounded atelectasis. Enlargement of the pain and possible cirrhosis was noted on that study. No evidence of DVT was noted at the left lower extremity. The patient was noted to be on minocycline which was given for six weeks and she was still taking that antibiotic on this admission. PAST MEDICAL HISTORY Fibromyalgia, depression, hypertension, diabetes mellitus type 2, COPD, CHF, coronary artery disease, osteoarthritis, history of AICD placement for paroxysmal atrial fibrillation, appendectomy, cholecystectomy. ALLERGIES NO KNOWN DRUG ALLERGIES. MEDICATIONS 1. Ferrous sulfate. 2. Vancomycin. 3. Piperacillin/tazobactam 4. Lactinex. 5. Lopressor 6. Tiffanie-colace. 7. DuoNeb 8. Ferrous sulfate 9. Lactulose. SOCIAL HISTORY No tobacco, no alcohol, no illicit drug use. FAMILY HISTORY Noncontributory. REVIEW OF SYSTEMS: Review of systems negative on 10-point review. PHYSICAL EXAMINATION This is a pleasant well-developed female in no acute distress. Vital signs: Include temperature 98.7, BP 127/58, respirations 20, heart rate 59. HEENT: Extraocular grossly intact, pupils reactive to light without icterus. Oropharynx, no visible lesions. Neck: Supple without adenopathy. Lungs: Clear breath sounds with slight diminished sounds at the bases. Heart: Regular S1-S2. Abdomen: Bowel sounds present, soft, no tenderness appreciated. Rectal: Not performed. Extremities: The left hip has a dressing in place over the area of prior wound Vac. No erythema is around at the wound. The left tibia has erythema confluent below the knee and down to the ankle and left great toe has mild erythema, 1+ edema of the left lower extremity. Neuro: Nonfocal. Skin: No rash. Psych: The patient is calm and cooperative. LABORATORY DATA: WBC 9.6, platelets 201, 86% neutrophils, hemoglobin 9.9, creatinine 1.58, BUN 27, estimated GFR 32. IMPRESSION 1. Cellulitis of the left lower extremity. Patient with SIRS. 2. Chronic kidney disease. RECOMMENDATIONS 1. Continue vancomycin 2. Continue Piperacillin/tazobactam. 3. Monitor response of the leg to treatment and monitor for worsening of symptoms of sepsis. Thank you for this consultation. The patient's progress will be monitored and further recommendations will be given on followup. Kika Camarillo MD FD/MUKUL /8:06 PM /11:41 PM HEATHER
[2017-04-28] VITALS (11 sets, daily range): BP systolic 92–124; BP diastolic 46–83; PULSE 59–74; RESP 16–20; TEMP 97–99.7; O2SAT 93–100
[2017-04-28] MEDS: PIPERACIL-TAZO 3.375 GM PREMIX 50 ML IV SCH ×4 (00:30→17:18)
[2017-04-28] MEDS: RESP: ALBUTEROL 2.5 MG/IPRATROPIUM 0.5 MG NEB (SCH) NEB ×8 (04:00→22:48)
[2017-04-28] MEDS: LEVOTHYROXINE SODIUM 112 MCG TAB PO SCH (06:03)
[2017-04-28] MEDS: INSULIN NovoLIN REGULAR SUPPLEMENTAL SCALE SQ SCH ×4 (06:04→21:00)
[2017-04-28 08:07] LABS: AUTOMATED NEUTROPHIL # 4.9 TH/MM3 (1.8-7.7); BASOPHIL % 0.3 % (0.0-2.0); EOSINOPHIL # 0.1 TH/MM3 (0-0.4); EOSINOPHIL % 1.7 % (0.0-4.0); HEMO FLAGS DIFF FINAL; LYMPH % 10.6 % (9.0-44.0); LYMPHOCYTE # 0.6 TH/MM3 (1.0-4.8); MEAN CELL VOLUME 84.7 FL (80.0-100.0); MEAN CORPUSCULAR HEMOGLOBIN 27.3 PG (27.0-34.0); MEAN CORPUSCULAR HGB CONC 32.2 % (32.0-36.0); MONO % 7.3 % (0.0-8.0); NEUT % 80.1 % (16.0-70.0); PLATELET COUNT 187 TH/MM3 (150-450); RED CELL DISTRIBUTION WIDTH 17.1 % (11.6-17.2); WHITE BLOOD COUNT 6.1 TH/MM3 (4.0-11.0)
[2017-04-28 08:26] LABS: BICARBONATE 25.8 MEQ/L (21.0-32.0); POTASSIUM 4.4 MEQ/L (3.5-5.1)
[2017-04-28] MEDS: LACTOBACILLUS ACIDOPHILUS TAB PO SCH ×2 (08:37→21:07)
[2017-04-28] MEDS: MAGNESIUM OXIDE 400 MG TAB PO SCH (08:37)
--- NOTE | 2017-04-28 08:37 | HHI.PR ---
Subjective Remarks This is a 71-year-old female who presents via EMS for evaluation. She is currently a resident of [facility] rehabilitation. According to EMS report the patient was found with a questionable left-sided facial droop by her nurse this morning. EMS did not appreciate any facial droop or change from her baseline neurologic status. She did have a elevated temperature of 99.6 as well as complaints of left lower extremity redness and pain. Upon questioning the patient reports that her left leg is been hurting her for the past few weeks. She does have a temperature 100.6 here. She is also had a cough for 1 month. Denies abdominal pain, nausea or vomiting, headache. No other complaints. The family members arrived shortly after examination. They report that the patient has been having generalized weakness for the past week. She has also seemed more confused, forgetful. seen in her bedroom improving slowly, no nausea, vomit or diarrhea. Objective Vital Signs Date Time Temp Pulse Resp B/P Pulse Ox O2 Delivery O2 Flow Rate FiO2 04/28/17 04:00 97.0 59 18 96/46 96 04/28/17 00:37 97.4 60 18 92/50 99 04/27/17 21:18 97.9 60 16 117/55 100 04/27/17 21:13 99 Nasal Cannula 1.00 04/27/17 20:00 59 04/27/17 18:30 98.7 59 20 127/58 100 04/27/17 16:23 98.1 61 17 118/60 99 Nasal Cannula 2 04/27/17 13:30 99.1 65 17 158/67 100 Nasal Cannula 2 04/27/17 12:24 100 Nasal Cannula 3 04/27/17 12:24 17 100 Nasal Cannula 3 04/27/17 12:10 18 100 Nasal Cannula 3 04/27/17 12:07 100.6 65 17 128/71 100 I/O 04/27/17 04/27/17 04/27/17 04/28/17 04/28/17 04/28/17 07:00 15:00 23:00 07:00 15:00 23:00 Intake Total 200 ml 1062 ml Balance 200 ml 1062 ml Intake Oral 200 ml 240 ml IV Total 822 ml # Voids 2 # Bowel Movements 0 0 Result Diagram: 04/28/1715 04/28/1715 Imaging Last Impressions Lower Extremity Ultrasound 04/27/17 1213 Signed Impressions: Service Date/Time: Thursday, April 27, 2017 12:57 - CONCLUSION: 1. Suboptimal evaluation of the calf veins primarily due to body habitus and edema. 2. Otherwise, no sonographic evidence for left lower extremity DVT. Warren Rodriguez MD Chest X-Ray 04/27/17 1213 Signed Impressions: Service Date/Time: Thursday, April 27, 2017 12:18 - CONCLUSION: Chronic elevation right hemidiaphragm. Left basilar subsegmental atelectasis. Cardiomegaly. Andrew Glass MD Head CT 04/27/17 0000 Signed Impressions: Service Date/Time: Thursday, April 27, 2017 14:23 - CONCLUSION: 1. Cerebral atrophy and chronic ischemic small vessel vasculopathy. 2. No acute intracranial abnormality. Andrew Glass MD Chest CT 04/27/17 0000 Signed Impressions: Service Date/Time: Thursday, April 27, 2017 17:01 - CONCLUSION: 1. Advanced cardiomegaly. 2. Minimal left basilar effusion and likely area of rounded atelectasis. 3. Ascites within the upper abdomen. 4. Enlargement of the spleen and possible cirrhosis. Boyd العراقي MD Procedures No procedures performed. Other Results Laboratory Tests Test 04/27/17 04/27/17 04/27/17 04/28/17 12:20 12:50 19:19 07:15 Prothrombin Time 13.5 SEC Prothromb Time International 1.2 RATIO Ratio Activated Partial 37.5 SEC Thromboplast Time Total Bilirubin 1.4 MG/DL Aspartate Amino Transf 20 U/L (AST/SGOT) Alanine Aminotransferase 14 U/L (ALT/SGPT) Alkaline Phosphatase 163 U/L Total Protein 5.5 GM/DL Albumin 2.3 GM/DL Urine Color YELLOW Urine Turbidity CLEAR Urine pH 5.5 Urine Specific [place] 1.017 Urine Protein TRACE mg/dL Urine Glucose (UA) NEG mg/dL Urine Ketones NEG mg/dL Urine Occult Blood NEG Urine Nitrite NEG Urine Bilirubin NEG Urine Urobilinogen LESS THAN 2.0 MG/DL Urine Leukocyte Esterase NEG Urine RBC LESS THAN 1 /hpf Urine WBC 1 /hpf Urine Squamous Epithelial <1 /hpf Cells Urine Hyaline Casts 4 /lpf Urine Mucus FEW /lpf Microscopic Urinalysis Comment CATH-CULT NOT IND Lactic Acid Level 1.3 mmol/L White Blood Count 6.1 TH/MM3 Red Blood Count 3.30 MIL/MM3 Hemoglobin 9.0 GM/DL Hematocrit 28.0 % Mean Corpuscular Volume 84.7 FL Mean Corpuscular Hemoglobin 27.3 PG Mean Corpuscular Hemoglobin 32.2 % Concent Red Cell Distribution Width 17.1 % Platelet Count 187 TH/MM3 Mean Platelet Volume 8.7 FL Neutrophils (%) (Auto) 80.1 % Lymphocytes (%) (Auto) 10.6 % Monocytes (%) (Auto) 7.3 % Eosinophils (%) (Auto) 1.7 % Basophils (%) (Auto) 0.3 % Neutrophils # (Auto) 4.9 TH/MM3 Lymphocytes # (Auto) 0.6 TH/MM3 Monocytes # (Auto) 0.4 TH/MM3 Eosinophils # (Auto) 0.1 TH/MM3 Basophils # (Auto) 0.0 TH/MM3 CBC Comment DIFF FINAL Differential Comment Sodium Level 139 MEQ/L Potassium Level 4.4 MEQ/L Chloride Level 105 MEQ/L Carbon Dioxide Level 25.8 MEQ/L Anion Gap 8 MEQ/L Blood Urea Nitrogen 27 MG/DL Creatinine 1.49 MG/DL Estimat Glomerular Filtration 34 ML/MIN Rate Random Glucose 102 MG/DL Calcium Level 10.2 MG/DL Objective Remarks GENERAL: Obesity, oriented in person and place. SKIN: Warm and dry. The patient has erythema on the left lower extremity. She has a wound with a dressing in the left groin region. no drainage at this time HEAD: Atraumatic. Normocephalic. EYES: Pupils equal and round. No scleral icterus. No injection or drainage. ENT: No nasal bleeding or discharge. Mucous membranes pink and moist. NECK: Trachea midline. No JVD. CARDIOVASCULAR: Regular rate and rhythm. Systolic murmur appreciated. RESPIRATORY: No accessory muscle use. Clear to auscultation. Breath sounds equal bilaterally. GASTROINTESTINAL: Abdomen soft, non-tender, nondistended. Hepatic and splenic margins not palpable. MUSCULOSKELETAL: No obvious deformities. No clubbing. No cyanosis. No edema. NEUROLOGICAL: Awake and alert. No focal deficits. Medications and IVs Current Medications Medications (Trade) Dose Ordered Sig/Marbin Route Start Time Stop Time Status Last Admin (Xanax) 0.5 mg HS PO 04/27/17 21:00 04/27/17 21:41 (Eliquis) 2.5 mg BID PO 04/27/17 21:00 04/27/17 21:41 (Vitamin D3) 2,000 units DAILY PO 04/28/17 09:00 (Cymbalta Dr) 30 mg DAILY PO 04/28/17 09:00 (PROzac) 40 mg HS PO 04/27/17 21:00 04/27/17 21:41 (Lasix) 20 mg DAILY PO 04/28/17 09:00 (Robitussin Dm 200-20 Mg/10 ml Liq) 10 ml Q6HR PRN PO 04/27/17 15:30 ([place] 7.5-325 Mg) 1 tab Q4H PRN PO 04/27/17 15:30 (Xalatan 0.005% Opth Soln) 1 drop HS EACH EYE 04/27/17 21:00 (Synthroid) 112 mcg DAILY@0600 PO 04/28/17 06:00 04/28/17 06:03 (Lopressor) 25 mg Q12HR PO 04/27/17 21:00 04/27/17 21:41 (KCl) 10 meq DAILY PO 04/28/17 09:00 (Ferrous Sulfate) 325 mg TID PO 04/27/17 18:00 04/27/17 18:29 (Mag-Ox) 400 mg DAILY PO 04/28/17 09:00 (Theragran M Tab) 1 tab DAILY PO 04/28/17 09:00 Lactobacillus Acidophilus 1 tab 1 tab BID PO 04/27/17 21:00 04/27/17 21:42 (NS 1000 ml Inj) 1,000 ml @ 83 mls/hr Q12H3M IV 04/27/17 15:20 04/27/17 15:54 (NS Flush) 2 ml UNSCH PRN IV FLUSH 04/27/17 15:30 (NS Flush) 2 ml BID IV FLUSH 04/27/17 21:00 04/27/17 21:00 (Tylenol) 650 mg Q4H PRN PO 04/27/17 15:30 (Zofran Inj) 4 mg Q6H PRN IVP 04/27/17 15:30 (Narcan Inj) 0.4 mg UNSCH PRN IV 04/27/17 15:30 (Tiffanie-Colace) 1 tab BID PO 04/27/17 21:00 04/27/17 21:41 (Milk Of Magnsuad Liq) 30 ml Q12H PRN PO 04/27/17 15:30 (Senokot) 17.2 mg Q12H PRN PO 04/27/17 15:30 (Dulcolax Supp) 10 mg DAILY PRN RECTAL 04/27/17 15:30 Lactulose 30 ml 30 ml DAILY PRN PO 04/27/17 15:30 Pharmacy Profile Note 0 ml @ 0 mls/hr UNSCH OTHER 04/27/17 15:30 (Zosyn 3.375 Gm Premix) 50 ml @ 100 mls/hr Q6H IV 04/27/17 18:30 04/28/17 06:03 (D50w (Vial) Inj) 25 ml UNSCH PRN IV PUSH 04/27/17 16:00 Glucagon 1 mg 1 mg UNSCH PRN OTHER 04/27/17 16:00 (Vancomycin Inj/ NS 500 ml Inj) 515 ml @ 250 mls/hr Q24H IV 04/27/17 21:00 04/27/17 21:40 Miscellaneous Information SPECIFIC LAB TO BE DRAWN:VANCOMYCIN TROUGH DATE TO... ONCE ONCE .XX 04/29/17 20:45 04/29/17 20:46 A/P Assessment and Plan 1. SIRS probable secondary to Left leg cellulitis, and also found purulent tissue in her mouth and cough probable secondary to Pneumonia asked for CT chest to confirm it, following blood cultures, Legionella antigen, Pneumococcal antigen, Vancomycin and Zosyn, as per center specialists probably left basal Pneumonia. 2. Left Leg Cellulitis, discussed with podiatric foot and ankle specialist Miss Shultz also continue Antibiotics. 3. Questionable facial droop CT grain negative for acute infarct, or hemorrhage 4. OA by History/Fibromyalgia 5. Anxiety disorder/Depression to continue Home medicines 6. PAF status post AICD and Medicines continue, at this time Pacemaker Interrogated she had fired her AICD 7. CAD/Hypertension/CHF continue present care she needs some IV fluids will follow BNP in am tomorrow 8. COPD on Bronchodilator, Mucolytic and incentive spirometry. 9. DM II continue sliding scale for now 10. Obesity strongly recommended diet and exercise 11. Deconditioning, she is been in Rehab but not improving her Rehab has been terminated for May 03 and will be discharged but not improving, got PT eval and Package Dye Stand Loader here 12. 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 Code Status Full Code. Discharge Planning Expected in one to two days. Dariusz Ayala MD Apr 28, 2017 08:37 but not improving, got PT eval and Package Dye Stand Loader here DVT prophylaxis with Eliquis Discussed with ER PA and with her Son and Daughter in ER appreciated, all questions answered to the best of my abilities. Code Status Full Code. Discussed Condition With Dariusz Ayala MD Apr 28, 2017 08:37
[2017-04-28] MEDS: METOPROLOL TARTRATE 25 MG TAB PO SCH ×2 (08:38→21:07)
[2017-04-28] MEDS: APIXABAN 2.5 MG TABLET PO SCH ×2 (08:38→21:07)
[2017-04-28] MEDS: FERROUS SULFATE 325 MG (65 MG ELEMENTAL IRON) TAB PO SCH ×3 (08:38→17:18)
[2017-04-28] MEDS: FUROSEMIDE 20 MG TAB PO SCH (08:39)
[2017-04-28] MEDS: POTASSIUM CHLORIDE 10 MEQ CAP PO SCH (08:39)
[2017-04-28] MEDS: DOCUSATE SODIUM 50 MG/SENNA 8.6 MG TAB PO SCH ×2 (08:39→21:07)
[2017-04-28] MEDS: DULoxetine HCl DR 30 MG CAP PO SCH (08:39)
[2017-04-28] MEDS: CHOLECALCIFEROL (VIT D3) 1000 UNIT TAB PO SCH (08:39)
[2017-04-28] MEDS: MULTIVITAMINS/MINERALS THERAPEUTIC TAB PO SCH (08:52)
[2017-04-28] MEDS: SODIUM CHLORIDE 0.9% FLUSH 10 ML FLUSH IV FLUSH SCH ×2 (08:52→21:08)
[2017-04-28] MEDS: ACETAMINOPHEN/HYDROcodone 325 MG/7.5 MG TAB PO PRN (15:22)
--- NOTE | 2017-04-28 15:38 | PD.WCN.NOT ---
Wound Consult Description: Patient seen on for wound to L anterior groin area. Wound assessment completed with assistance of Abena CASTILLO onida. Removed dressing in place to reveal wound with 100% pale red granulation tissue. Wound noted with minimal sero-sanguinous drainage on old dressing without odor. No active drainage noted from wound. Periwound is is slightly indurated from 10 to 7 o' clock. Slight erythema noted from 9 to 12 o'clock. Wound measures 1 x 3.9 x ~0.1.Patient sees out patient wound care Doctor Wu for wound to L groin. Per Patient's son, wound has improved with dressings that have silver in them. Cleansed wound with normal saline and applied dry 4x4 gauze and secured with paper tape, until Optifoam AG non adhesive dressing can be applied. Communicated with: Doctor Richardson Puentes and ANNA Kraft Recommendation: Recommend to cleanse wound to L groin area with normal saline and apply Optifoam AG non adhesive dressing and secure with paper tape. Please apply skin prep before applying adhesives to skin.Please change dressing every other day or PRN if saturated or dislodged Lexii Rubin [facility] Apr 28, 2017 15:38
[2017-04-28] MEDS: SODIUM CHLOR 0.9% 1000 ML INJ 1,000 ML IV SCH ×2 (15:49→21:08)
--- NOTE | 2017-04-28 16:27 | HHI.IDPN ---
Note Infectious Disease Note Presented to emergency department with fever and left lower extremity pain. The patient was in the hospital after she sustained fracture of the left hip and she had a partial hip replacement and then she fell again and reinjured the leg in January. She had to have additional surgery and then she developed MRSA infection in the left hip and required a wound Vac and she was treated with IV antibiotics up until about a month ago. PAST MEDICAL HISTORY Fibromyalgia, depression, hypertension, diabetes mellitus type 2, COPD, CHF, coronary artery disease, osteoarthritis, history of AICD placement for paroxysmal atrial fibrillation, appendectomy, cholecystectomy. ALLERGIES NO KNOWN DRUG ALLERGIES. ANTIBIOTICS 1. Vancomycin. 2. Piperacillin/tazobactam. OBJECTIVE: Vital Signs Date Time Temp Pulse Resp B/P Pulse Ox O2 Delivery O2 Flow Rate FiO2 04/28/17 12:00 98.9 63 18 114/56 98 04/28/17 11:15 100 Nasal Cannula 2.00 04/28/17 09:27 99 Nasal Cannula 2.00 04/28/17 08:00 99.7 63 18 120/56 98 04/28/17 04:00 97.0 59 18 96/46 96 04/28/17 00:37 97.4 60 18 92/50 99 04/27/17 21:18 97.9 60 16 117/55 100 04/27/17 21:13 99 Nasal Cannula 1.00 04/27/17 20:00 59 04/27/17 18:30 98.7 59 20 127/58 100 Laboratory Tests Test 04/27/17 04/28/17 12:20 07:15 White Blood Count 9.6 TH/MM3 6.1 TH/MM3 Red Blood Count 3.65 MIL/MM3 3.30 MIL/MM3 Hemoglobin 9.9 GM/DL 9.0 GM/DL Hematocrit 31.1 % 28.0 % Mean Corpuscular Volume 85.1 FL 84.7 FL Mean Corpuscular Hemoglobin 27.0 PG 27.3 PG Mean Corpuscular Hemoglobin 31.8 % 32.2 % Concent Red Cell Distribution Width 16.9 % 17.1 % Platelet Count 201 TH/MM3 187 TH/MM3 Mean Platelet Volume 8.5 FL 8.7 FL Neutrophils (%) (Auto) 86.4 % 80.1 % Lymphocytes (%) (Auto) 7.4 % 10.6 % Monocytes (%) (Auto) 5.8 % 7.3 % Eosinophils (%) (Auto) 0.2 % 1.7 % Basophils (%) (Auto) 0.2 % 0.3 % Neutrophils # (Auto) 8.3 TH/MM3 4.9 TH/MM3 Lymphocytes # (Auto) 0.7 TH/MM3 0.6 TH/MM3 Monocytes # (Auto) 0.6 TH/MM3 0.4 TH/MM3 Eosinophils # (Auto) 0.0 TH/MM3 0.1 TH/MM3 Basophils # (Auto) 0.0 TH/MM3 0.0 TH/MM3 CBC Comment DIFF FINAL DIFF FINAL Differential Comment Laboratory Tests Test 04/27/17 04/27/17 04/27/17 04/28/17 12:20 14:31 19:19 07:15 Sodium Level 138 MEQ/L 139 MEQ/L Potassium Level 4.5 MEQ/L 4.4 MEQ/L Chloride Level 103 MEQ/L 105 MEQ/L Carbon Dioxide Level 28.3 MEQ/L 25.8 MEQ/L Anion Gap 7 MEQ/L 8 MEQ/L Blood Urea Nitrogen 27 MG/DL 27 MG/DL Creatinine 1.58 MG/DL 1.49 MG/DL Estimat Glomerular Filtration 32 ML/MIN 34 ML/MIN Rate Random Glucose 171 MG/DL 102 MG/DL Lactic Acid Level 2.2 mmol/L 1.7 mmol/L 1.3 mmol/L Calcium Level 10.3 MG/DL 10.2 MG/DL Total Bilirubin 1.4 MG/DL Aspartate Amino Transf 20 U/L (AST/SGOT) Alanine Aminotransferase 14 U/L (ALT/SGPT) Alkaline Phosphatase 163 U/L Total Protein 5.5 GM/DL Albumin 2.3 GM/DL Microbiology Date/Time Procedure Status Source Growth 04/27/17 12:20 Aerobic Blood Culture - Preliminary Resulted Blood Peripheral NO GROWTH IN 1 DAY 04/27/17 12:20 Anaerobic Blood Culture - Preliminary Resulted Blood Peripheral NO GROWTH IN 1 DAY 04/27/17 12:25 Aerobic Blood Culture - Preliminary Resulted Blood Peripheral NO GROWTH IN 1 DAY 04/27/17 12:25 Anaerobic Blood Culture - Preliminary Resulted Blood Peripheral NO GROWTH IN 1 DAY 04/27/17 12:50 Gram Stain - Final Resulted Wound Leg 04/27/17 12:50 Wound Culture - Preliminary Resulted Wound Leg MODERATE GROWTH NORMAL SKIN JOSE RAUL AT ... PHYSICAL EXAMINATION GENERAL: No acute distress. HEENT: Extraocular grossly intact, pupils reactive to light without icterus. Oropharynx, no visible lesions. Erythema at the tongue. Neck: Supple without adenopathy. Lungs: Clear breath sounds with slight diminished sounds at the bases. Heart: Regular S1-S2. Abdomen: Bowel sounds present, soft, no tenderness appreciated. Extremities: The left hip has a dressing in place over the area of prior wound Vac. No erythema is around at the wound. The left tibia has erythema confluent below the knee, it looks mildly improved. the left inner to posterior distal thigh has area of erythema and edema and warmth. 1+ edema of the left lower extremity. Neuro: Nonfocal. Skin: No rash. Psych: The patient is calm and cooperative. IMPRESSION 1. Cellulitis of the left lower extremity. Patient with SIRS. Recent MRSA infection. Maybe a little improved. 2. Chronic kidney disease. RECOMMENDATIONS 1. Continue vancomycin 2. Continue Piperacillin/tazobactam. 3. Add nystatin for thrush. 4. Monitor response of the leg to treatment and monitor for worsening of symptoms of sepsis. Quinn Camarillo MD Apr 28, 2017 16:26 Quinn Camarillo MD Apr 28, 2017 16:26
[2017-04-28] MEDS: NYSTATIN SUSP 500,000 U/5 ML CUP SWISH-SWAL SCH ×2 (17:18→21:08)
--- NOTE | 2017-04-28 18:55 | HHI.PR ---
Subjective Remarks She is alert and has no SOB . On O2 2l On antibiotics for cellulitis.Leg edema is down Objective Vital Signs Date Time Temp Pulse Resp B/P Pulse Ox O2 Delivery O2 Flow Rate FiO2 04/28/17 17:46 61 04/28/17 16:00 97.4 63 18 99/52 98 04/28/17 12:00 98.9 63 18 114/56 98 04/28/17 11:15 100 Nasal Cannula 2.00 04/28/17 09:27 99 Nasal Cannula 2.00 04/28/17 08:00 99.7 63 18 120/56 98 04/28/17 04:00 97.0 59 18 96/46 96 04/28/17 00:37 97.4 60 18 92/50 99 04/27/17 21:18 97.9 60 16 117/55 100 04/27/17 21:13 99 Nasal Cannula 1.00 04/27/17 20:00 59 I/O 04/27/17 04/27/17 04/27/17 04/28/17 04/28/17 04/28/17 07:00 15:00 23:00 07:00 15:00 23:00 Intake Total 200 ml 1062 ml 80 ml 30 ml Balance 200 ml 1062 ml 80 ml 30 ml Intake Oral 200 ml 240 ml IV Total 822 ml 80 ml 30 ml # Voids 2 5 1 # Bowel Movements 0 0 Result Diagram: 04/28/1715 04/28/17 0715 Procedures No procedures performed. Objective Remarks GENERAL: This moderately obese, elderly lady in bed. She was pale and in no acute distress. She has no clubbing. There is mild peripheral edema. The left leg is swollen and some redness of the skin starting from the knee downwards. No calf tenderness. HEENT: Head normocephalic. Pupils are reactive and equal. Tongue is moist. Throat was clear. The lips are excoriated. Ears no inflammation. NECK: Supple without venous distension. Trachea midline. CHEST: Equal movements with decreased breath sounds of the bases with occasional wheezes bilaterally. Crackles at the left base. CARDIOVASCULAR: Heart sounds are regular S1-S2 with a systolic murmur 2/6 at the sternal border. ABDOMEN: Soft, protuberant without masses. No organomegaly or tenderness. Bowel sounds are active. EXTREMITIES: Left leg edema with redness of the skin from thigh downwards and the right leg has mild edema. The patient is unable to lift the left leg. She is moving the right extremities. Babinski negative. NEUROLOGIC: The patient has no focal neuro deficits. RECTAL: Exam is deferred. Assessment and Plan Assessment and Plan IMPRESSION 1. Left leg cellulitis with SIRS. 2. Possible early pneumonia left base. 3. COPD. 4. CHF, compensated. 5. History of hypertension. 6. Diabetes mellitus type 2. 7. Severe deconditioning. 8. Status post left hip arthroplasty. 9. Obstructive sleep apnea. Plan : 1. Cont antibiotics. 2. Cont Nebs qid , duoneb 3. O2 at 2 L 4. IS q3h at bedside 5. Anticoagulation with Eliquis 6. Labs in am Kamlesh Spence MD Apr 28, 2017 18:55
[2017-04-28] MEDS: ALPRAZolam 0.5 MG TAB PO SCH (21:07)
[2017-04-28] MEDS: FLUoxetine HCL 20 MG CAP PO SCH (21:07)
[2017-04-28] MEDS: VANCOMYCIN INJ 1,500 MG in SODIUM CHLORID 0.9% 500 ML INJ 500 ML IV SCH (21:08)
[2017-04-28] MEDS: LATANOPROST 0.005% OPHT SOLN 2.5 ML BTL EACH EYE SCH ×2 (21:45→21:46)
[2017-04-29] VITALS (9 sets, daily range): BP systolic 103–124; BP diastolic 53–89; PULSE 55–66; RESP 18–20; TEMP 95.8–98.2; O2SAT 95–100
[2017-04-29] MEDS: PIPERACIL-TAZO 3.375 GM PREMIX 50 ML IV SCH ×3 (00:50→14:37)
[2017-04-29] MEDS: LEVOTHYROXINE SODIUM 112 MCG TAB PO SCH (06:12)
[2017-04-29] MEDS: INSULIN NovoLIN REGULAR SUPPLEMENTAL SCALE SQ SCH ×4 (06:15→21:00)
[2017-04-29] MEDS: RESP: ALBUTEROL 2.5 MG/IPRATROPIUM 0.5 MG NEB (SCH) NEB ×6 (08:57→21:04)
[2017-04-29] MEDS: SODIUM CHLOR 0.9% 1000 ML INJ 1,000 ML IV SCH (09:03)
[2017-04-29] MEDS: FUROSEMIDE 20 MG TAB PO SCH (09:04)
[2017-04-29] MEDS: DOCUSATE SODIUM 50 MG/SENNA 8.6 MG TAB PO SCH ×2 (09:04→21:00)
[2017-04-29] MEDS: LACTOBACILLUS ACIDOPHILUS TAB PO SCH ×2 (09:04→21:50)
[2017-04-29] MEDS: MULTIVITAMINS/MINERALS THERAPEUTIC TAB PO SCH (09:04)
[2017-04-29] MEDS: METOPROLOL TARTRATE 25 MG TAB PO SCH ×2 (09:05→21:50)
[2017-04-29] MEDS: APIXABAN 2.5 MG TABLET PO SCH ×2 (09:05→21:51)
[2017-04-29] MEDS: CHOLECALCIFEROL (VIT D3) 1000 UNIT TAB PO SCH (09:05)
[2017-04-29] MEDS: FERROUS SULFATE 325 MG (65 MG ELEMENTAL IRON) TAB PO SCH ×3 (09:05→17:43)
[2017-04-29] MEDS: MAGNESIUM OXIDE 400 MG TAB PO SCH (09:05)
[2017-04-29] MEDS: DULoxetine HCl DR 30 MG CAP PO SCH (09:05)
[2017-04-29] MEDS: SODIUM CHLORIDE 0.9% FLUSH 10 ML FLUSH IV FLUSH SCH ×2 (09:05→21:51)
[2017-04-29] MEDS: POTASSIUM CHLORIDE 10 MEQ CAP PO SCH (09:05)
[2017-04-29] MEDS: NYSTATIN SUSP 500,000 U/5 ML CUP SWISH-SWAL SCH ×4 (09:05→21:51)
--- NOTE | 2017-04-29 09:21 | HHI.PR ---
Subjective Remarks This is a 71-year-old female who presents via EMS for evaluation. She is currently a resident of [facility] rehabilitation. According to EMS report the patient was found with a questionable left-sided facial droop by her nurse this morning. EMS did not appreciate any facial droop or change from her baseline neurologic status. She did have a elevated temperature of 99.6 as well as complaints of left lower extremity redness and pain. Upon questioning the patient reports that her left leg is been hurting her for the past few weeks. She does have a temperature 100.6 here. She is also had a cough for 1 month. Denies abdominal pain, nausea or vomiting, headache. No other complaints. The family members arrived shortly after examination. They report that the patient has been having generalized weakness for the past week. She has also seemed more confused, forgetful. 04/29: Seen in her bedroom, alert and oriented, no nausea, vomit or diarrhea, states is not able to work with Physical Therapy. Objective Vital Signs Date Time Temp Pulse Resp B/P Pulse Ox O2 Delivery O2 Flow Rate FiO2 04/29/17 08:59 100 04/29/17 08:10 97.7 57 20 120/59 100 04/29/17 07:26 55 04/29/17 04:00 97.7 57 18 110/55 100 04/29/17 00:00 95.8 60 18 103/53 98 04/28/17 20:14 98 Nasal Cannula 2.00 04/28/17 20:00 97.9 69 20 122/55 93 04/28/17 19:30 64 04/28/17 17:46 61 04/28/17 16:00 97.4 63 18 99/52 98 04/28/17 12:00 98.9 63 18 114/56 98 04/28/17 11:15 100 Nasal Cannula 2.00 04/28/17 09:27 99 Nasal Cannula 2.00 I/O 04/28/17 04/28/17 04/28/17 04/29/17 04/29/17 04/29/17 07:00 15:00 23:00 07:00 15:00 23:00 Intake Total 1062 ml 80 ml 270 ml 480 ml Balance 1062 ml 80 ml 270 ml 480 ml Intake Oral 240 ml IV Total 822 ml 80 ml 270 ml 480 ml # Voids 2 5 2 2 # Bowel Movements 0 Result Diagram: 04/28/17 0715 04/28/17 0715 Imaging Last Impressions Lower Extremity Ultrasound 04/27/17 1213 Signed Impressions: Service Date/Time: Thursday, April 27, 2017 12:57 - CONCLUSION: 1. Suboptimal evaluation of the calf veins primarily due to body habitus and edema. 2. Otherwise, no sonographic evidence for left lower extremity DVT. Warren Rodriguez MD Chest X-Ray 04/27/17 1213 Signed Impressions: Service Date/Time: Thursday, April 27, 2017 12:18 - CONCLUSION: Chronic elevation right hemidiaphragm. Left basilar subsegmental atelectasis. Cardiomegaly. Andrew Glass MD Head CT 04/27/17 0000 Signed Impressions: Service Date/Time: Thursday, April 27, 2017 14:23 - CONCLUSION: 1. Cerebral atrophy and chronic ischemic small vessel vasculopathy. 2. No acute intracranial abnormality. Andrew Glass MD Chest CT 04/27/17 0000 Signed Impressions: Service Date/Time: Thursday, April 27, 2017 17:01 - CONCLUSION: 1. Advanced cardiomegaly. 2. Minimal left basilar effusion and likely area of rounded atelectasis. 3. Ascites within the upper abdomen. 4. Enlargement of the spleen and possible cirrhosis. Boyd العراقي MD Procedures No procedures performed. Other Results Laboratory Tests Test 04/27/17 04/27/17 04/27/17 04/28/17 12:20 12:50 19:19 07:15 Prothrombin Time 13.5 SEC Prothromb Time International 1.2 RATIO Ratio Activated Partial 37.5 SEC Thromboplast Time Total Bilirubin 1.4 MG/DL Aspartate Amino Transf 20 U/L (AST/SGOT) Alanine Aminotransferase 14 U/L (ALT/SGPT) Alkaline Phosphatase 163 U/L Total Protein 5.5 GM/DL Albumin 2.3 GM/DL Urine Color YELLOW Urine Turbidity CLEAR Urine pH 5.5 Urine Specific [place] 1.017 Urine Protein TRACE mg/dL Urine Glucose (UA) NEG mg/dL Urine Ketones NEG mg/dL Urine Occult Blood NEG Urine Nitrite NEG Urine Bilirubin NEG Urine Urobilinogen LESS THAN 2.0 MG/DL Urine Leukocyte Esterase NEG Urine RBC LESS THAN 1 /hpf Urine WBC 1 /hpf Urine Squamous Epithelial <1 /hpf Cells Urine Hyaline Casts 4 /lpf Urine Mucus FEW /lpf Microscopic Urinalysis Comment CATH-CULT NOT IND Lactic Acid Level 1.3 mmol/L White Blood Count 6.1 TH/MM3 Red Blood Count 3.30 MIL/MM3 Hemoglobin 9.0 GM/DL Hematocrit 28.0 % Mean Corpuscular Volume 84.7 FL Mean Corpuscular Hemoglobin 27.3 PG Mean Corpuscular Hemoglobin 32.2 % Concent Red Cell Distribution Width 17.1 % Platelet Count 187 TH/MM3 Mean Platelet Volume 8.7 FL Neutrophils (%) (Auto) 80.1 % Lymphocytes (%) (Auto) 10.6 % Monocytes (%) (Auto) 7.3 % Eosinophils (%) (Auto) 1.7 % Basophils (%) (Auto) 0.3 % Neutrophils # (Auto) 4.9 TH/MM3 Lymphocytes # (Auto) 0.6 TH/MM3 Monocytes # (Auto) 0.4 TH/MM3 Eosinophils # (Auto) 0.1 TH/MM3 Basophils # (Auto) 0.0 TH/MM3 CBC Comment DIFF FINAL Differential Comment Sodium Level 139 MEQ/L Potassium Level 4.4 MEQ/L Chloride Level 105 MEQ/L Carbon Dioxide Level 25.8 MEQ/L Anion Gap 8 MEQ/L Blood Urea Nitrogen 27 MG/DL Creatinine 1.49 MG/DL Estimat Glomerular Filtration 34 ML/MIN Rate Random Glucose 102 MG/DL Calcium Level 10.2 MG/DL Objective Remarks GENERAL: Obesity, oriented in person and place. SKIN: Warm and dry. The patient has erythema on the left lower extremity. She has a wound with a dressing in the left groin region. no drainage at this time HEAD: Atraumatic. Normocephalic. EYES: Pupils equal and round. No scleral icterus. No injection or drainage. ENT: No nasal bleeding or discharge. Mucous membranes pink and moist. NECK: Trachea midline. No JVD. CARDIOVASCULAR: Regular rate and rhythm. Systolic murmur appreciated. RESPIRATORY: No accessory muscle use. Clear to auscultation. Breath sounds equal bilaterally. GASTROINTESTINAL: Abdomen soft, non-tender, nondistended. Hepatic and splenic margins not palpable. MUSCULOSKELETAL: No obvious deformities. No clubbing. No cyanosis. No edema. NEUROLOGICAL: Awake and alert. No focal deficits. Medications and IVs Current Medications Medications (Trade) Dose Ordered Sig/Amrbin Route Start Time Stop Time Status Last Admin (Xanax) 0.5 mg HS PO 04/27/17 21:00 04/28/17 21:07 (Eliquis) 2.5 mg BID PO 04/27/17 21:00 04/29/17 09:05 (Vitamin D3) 2,000 units DAILY PO 04/28/17 09:00 04/29/17 09:05 (Cymbalta Dr) 30 mg DAILY PO 04/28/17 09:00 04/29/17 09:05 (PROzac) 40 mg HS PO 04/27/17 21:00 04/28/17 21:07 (Lasix) 20 mg DAILY PO 04/28/17 09:00 04/29/17 09:04 (Robitussin Dm 200-20 Mg/10 ml Liq) 10 ml Q6HR PRN PO 04/27/17 15:30 ([place] 7.5-325 Mg) 1 tab Q4H PRN PO 04/27/17 15:30 04/28/17 15:22 (Xalatan 0.005% Opth Soln) 1 drop HS EACH EYE 04/27/17 21:00 04/28/17 21:45 (Synthroid) 112 mcg DAILY@0600 PO 04/28/17 06:00 04/29/17 06:12 (Lopressor) 25 mg Q12HR PO 04/27/17 21:00 04/29/17 09:05 (KCl) 10 meq DAILY PO 04/28/17 09:00 04/29/17 09:05 (Ferrous Sulfate) 325 mg TID PO 04/27/17 18:00 04/29/17 09:05 (Mag-Ox) 400 mg DAILY PO 04/28/17 09:00 04/29/17 09:05 (Theragran M Tab) 1 tab DAILY PO 04/28/17 09:00 04/29/17 09:04 Lactobacillus Acidophilus 1 tab 1 tab BID PO 04/27/17 21:00 04/29/17 09:04 (NS 1000 ml Inj) 1,000 ml @ 60 mls/hr [id number] IV 04/27/17 15:20 04/29/17 09:03 (NS Flush) 2 ml UNSCH PRN IV FLUSH 04/27/17 15:30 (NS Flush) 2 ml BID IV FLUSH 04/27/17 21:00 04/28/17 21:08 (Tylenol) 650 mg Q4H PRN PO 04/27/17 15:30 (Zofran Inj) 4 mg Q6H PRN IVP 04/27/17 15:30 (Narcan Inj) 0.4 mg UNSCH PRN IV 04/27/17 15:30 (Tiffanie-Colace) 1 tab BID PO 04/27/17 21:00 04/29/17 09:04 (Milk Of Magnesia Liq) 30 ml Q12H PRN PO 04/27/17 15:30 (Senokot) 17.2 mg Q12H PRN PO 04/27/17 15:30 (Dulcolax Supp) 10 mg DAILY PRN RECTAL 04/27/17 15:30 Lactulose 30 ml 30 ml DAILY PRN PO 04/27/17 15:30 Pharmacy Profile Note 0 ml @ 0 mls/hr UNSCH OTHER 04/27/17 15:30 (Zosyn 3.375 Gm Premix) 50 ml @ 100 mls/hr Q6H IV 04/27/17 18:30 04/29/17 06:13 (D50w (Vial) Inj) 25 ml UNSCH PRN IV PUSH 04/27/17 16:00 Glucagon 1 mg 1 mg UNSCH PRN OTHER 04/27/17 16:00 (Vancomycin Inj/ NS 500 ml Inj) 515 ml @ 250 mls/hr Q24H IV 04/27/17 21:00 04/28/17 21:08 Miscellaneous Information SPECIFIC LAB TO BE DRAWN:VANCOMYCIN TROUGH DATE TO... ONCE ONCE .XX 04/29/17 20:45 04/29/17 20:46 (Mycostatin Liq) 5 ml QID SWISH-SWAL 04/28/17 18:00 04/29/17 09:05 A/P Assessment and Plan 1. SIRS probable secondary to Left leg cellulitis, and also found purulent tissue in her mouth and cough probable secondary to Pneumonia asked for CT chest to confirm it, following blood cultures, Legionella antigen, Pneumococcal antigen, Vancomycin and Zosyn, as per relocation specialist probably left basal Pneumonia. 2. Left Leg Cellulitis, discussed with desktop support specialist Miss Shultz also continue Antibiotics. 3. Questionable facial droop CT grain negative for acute infarct, or hemorrhage 4. OA by History/Fibromyalgia 5. Anxiety disorder/Depression to continue Home medicines 6. PAF status post AICD and Medicines continue, at this time Pacemaker Interrogated she had fired her AICD 7. CAD/Hypertension/CHF stable no signs of Overload. 8. COPD on Bronchodilator, Mucolytic and incentive spirometry. 9. DM II continue sliding scale for now 10. Obesity strongly recommended diet and exercise 11. Deconditioning, she is been in Rehab but not improving her Rehab has been terminated for May 03 and will be discharged but not improving, got PT lauro and Associate Entertainment Editor here 12. 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 Code Status Full Code. Discharge Planning Expected in one to two days. Dariusz Ayala MD Apr 29, 2017 09:21
--- NOTE | 2017-04-29 16:59 | HHI.IDPN ---
Note Infectious Disease Note Patient says she feels okay. Denies chills or SOB. Afebrile. Wound culture from R upper thigh has MRSA. Presented to emergency department with fever and left lower extremity pain. The patient was in the hospital after she sustained fracture of the left hip and she had a partial hip replacement and then she fell again and reinjured the leg in January. She had to have additional surgery and then she developed MRSA infection in the left hip and required a wound Vac and she was treated with IV antibiotics up until about a month ago. PAST MEDICAL HISTORY Fibromyalgia, depression, hypertension, diabetes mellitus type 2, COPD, CHF, coronary artery disease, osteoarthritis, history of AICD placement for paroxysmal atrial fibrillation, appendectomy, cholecystectomy. ALLERGIES NO KNOWN DRUG ALLERGIES. ANTIBIOTICS 1. Vancomycin. 2. Piperacillin/tazobactam. OBJECTIVE: Vital Signs Date Time Temp Pulse Resp B/P Pulse Ox O2 Delivery O2 Flow Rate FiO2 04/29/17 16:01 98.2 59 20 120/56 99 04/29/17 12:11 97.6 56 20 121/55 97 04/29/17 08:59 100 04/29/17 08:10 97.7 57 20 120/59 100 04/29/17 07:26 55 04/29/17 04:00 97.7 57 18 110/55 100 04/29/17 00:00 95.8 60 18 103/53 98 04/28/17 20:14 98 Nasal Cannula 2.00 04/28/17 20:00 97.9 69 20 122/55 93 04/28/17 19:30 64 04/28/17 17:46 61 04/28/17 04/28/17 04/29/17 15:00 23:00 07:00 Intake Total 80 ml 270 ml 480 ml Balance 80 ml 270 ml 480 ml IV Total 80 ml 270 ml 480 ml # Voids 5 2 2 Laboratory Tests Test 04/28/17 07:15 White Blood Count 6.1 TH/MM3 Red Blood Count 3.30 MIL/MM3 Hemoglobin 9.0 GM/DL Hematocrit 28.0 % Mean Corpuscular Volume 84.7 FL Mean Corpuscular Hemoglobin 27.3 PG Mean Corpuscular Hemoglobin 32.2 % Concent Red Cell Distribution Width 17.1 % Platelet Count 187 TH/MM3 Mean Platelet Volume 8.7 FL Neutrophils (%) (Auto) 80.1 % Lymphocytes (%) (Auto) 10.6 % Monocytes (%) (Auto) 7.3 % Eosinophils (%) (Auto) 1.7 % Basophils (%) (Auto) 0.3 % Neutrophils # (Auto) 4.9 TH/MM3 Lymphocytes # (Auto) 0.6 TH/MM3 Monocytes # (Auto) 0.4 TH/MM3 Eosinophils # (Auto) 0.1 TH/MM3 Basophils # (Auto) 0.0 TH/MM3 CBC Comment DIFF FINAL Differential Comment Laboratory Tests Test 04/27/17 04/28/17 19:19 07:15 Lactic Acid Level 1.3 mmol/L Sodium Level 139 MEQ/L Potassium Level 4.4 MEQ/L Chloride Level 105 MEQ/L Carbon Dioxide Level 25.8 MEQ/L Anion Gap 8 MEQ/L Blood Urea Nitrogen 27 MG/DL Creatinine 1.49 MG/DL Estimat Glomerular Filtration 34 ML/MIN Rate Random Glucose 102 MG/DL Calcium Level 10.2 MG/DL Microbiology Date/Time Procedure Status Source Growth 04/27/17 12:20 Aerobic Blood Culture - Preliminary Resulted Blood Peripheral Staph Sp Coagulase Negative 04/27/17 12:20 Anaerobic Blood Culture - Preliminary Resulted Blood Peripheral NO GROWTH IN 2 DAYS 04/27/17 12:25 Aerobic Blood Culture - Preliminary Resulted Blood Peripheral NO GROWTH IN 2 DAYS 04/27/17 12:25 Anaerobic Blood Culture - Preliminary Resulted Blood Peripheral NO GROWTH IN 2 DAYS 04/27/17 12:50 Gram Stain - Final Resulted Wound Leg 04/27/17 12:50 Wound Culture - Preliminary Resulted S. Aureus Mrsa IMAGING: Lower Extremity Ultrasound 04/27/17 1213 Signed Impressions: Service Date/Time: Thursday, April 27, 2017 12:57 - CONCLUSION: 1. Suboptimal evaluation of the calf veins primarily due to body habitus and edema. 2. Otherwise, no sonographic evidence for left lower extremity DVT. Warren Rodriguez MD Chest X-Ray 04/27/17 1213 Signed Impressions: Service Date/Time: Thursday, April 27, 2017 12:18 - CONCLUSION: Chronic elevation right hemidiaphragm. Left basilar subsegmental atelectasis. Cardiomegaly. Andrew Glass MD Head CT 04/27/17 0000 Signed Impressions: Service Date/Time: Thursday, April 27, 2017 14:23 - CONCLUSION: 1. Cerebral atrophy and chronic ischemic small vessel vasculopathy. 2. No acute intracranial abnormality. Andrew Glass MD Chest CT 04/27/17 0000 Signed Impressions: Service Date/Time: Thursday, April 27, 2017 17:01 - CONCLUSION: 1. Advanced cardiomegaly. 2. Minimal left basilar effusion and likely area of rounded atelectasis. 3. Ascites within the upper abdomen. 4. Enlargement of the spleen and possible cirrhosis. Boyd العراقي MD PHYSICAL EXAMINATION GENERAL: No acute distress. HEENT: Extraocular grossly intact, pupils reactive to light without icterus. Oropharynx, no visible lesions. Erythema at the tongue. Neck: Supple without adenopathy. Lungs: Clear breath sounds with slight diminished sounds at the bases. Heart: Regular S1-S2. Abdomen: Bowel sounds present, soft, no tenderness appreciated. Extremities: The left hip has a dressing in place over the area of prior wound Vac. No erythema is around at the wound which is superficially ulcerated ~ 2cm x 3cm. The left tibia erythema has faded. The left inner to posterior distal thigh Still has erythema and edema. Neuro: Nonfocal. Skin: No rash. Psych: The patient is calm and cooperative. IMPRESSION 1. Cellulitis of the left lower extremity. Patient with SIRS. Recent MRSA infection. Culture still has MRSA. 2. Chronic kidney disease. RECOMMENDATIONS 1. Continue vancomycin and monitor the MRSA sensitivity. Change to oral antibiotic if sensitive. Maybe sensitivity will be available tomorrow. 2. Stop Piperacillin/tazobactam. 3. Continue nystatin for thrush. 4. Wrap r. thigh with valeria bandage dressing to decrease edema. Quinn Camarillo MD Apr 29, 2017 16:59
[2017-04-29] MEDS ORDERED: PHARMACY ORDERED LAB ONE (20:45)
[2017-04-29] MEDS: FLUoxetine HCL 20 MG CAP PO SCH (21:50)
[2017-04-29] MEDS: ALPRAZolam 0.5 MG TAB PO SCH (21:51)
[2017-04-29] MEDS: ACETAMINOPHEN/HYDROcodone 325 MG/7.5 MG TAB PO PRN (21:51)
[2017-04-29] MEDS: LATANOPROST 0.005% OPHT SOLN 2.5 ML BTL EACH EYE SCH (21:52)
[2017-04-29] MEDS: VANCOMYCIN INJ 1,500 MG in SODIUM CHLORID 0.9% 500 ML INJ 500 ML IV SCH (21:52)
[2017-04-30] VITALS (9 sets, daily range): BP systolic 109–124; BP diastolic 53–62; PULSE 58–63; RESP 18–20; TEMP 96.1–98.3; O2SAT 96–100
[2017-04-30] MEDS: SODIUM CHLOR 0.9% 1000 ML INJ 1,000 ML IV SCH ×2 (00:06→18:16)
[2017-04-30] MEDS: RESP: ALBUTEROL 2.5 MG/IPRATROPIUM 0.5 MG NEB (SCH) NEB ×8 (04:00→23:36)
[2017-04-30] MEDS: LEVOTHYROXINE SODIUM 112 MCG TAB PO SCH (05:05)
[2017-04-30] MEDS: INSULIN NovoLIN REGULAR SUPPLEMENTAL SCALE SQ SCH ×4 (05:07→21:00)
[2017-04-30] MEDS: LACTOBACILLUS ACIDOPHILUS TAB PO SCH ×2 (08:55→21:31)
[2017-04-30] MEDS: DOCUSATE SODIUM 50 MG/SENNA 8.6 MG TAB PO SCH ×2 (08:56→21:31)
[2017-04-30] MEDS: FUROSEMIDE 20 MG TAB PO SCH (08:56)
[2017-04-30] MEDS: APIXABAN 2.5 MG TABLET PO SCH ×2 (08:56→21:31)
[2017-04-30] MEDS: MULTIVITAMINS/MINERALS THERAPEUTIC TAB PO SCH (08:56)
[2017-04-30] MEDS: POTASSIUM CHLORIDE 10 MEQ CAP PO SCH (08:56)
[2017-04-30] MEDS: METOPROLOL TARTRATE 25 MG TAB PO SCH ×2 (08:56→21:31)
[2017-04-30] MEDS: FERROUS SULFATE 325 MG (65 MG ELEMENTAL IRON) TAB PO SCH ×3 (08:56→18:16)
[2017-04-30] MEDS: DULoxetine HCl DR 30 MG CAP PO SCH (08:56)
[2017-04-30] MEDS: CHOLECALCIFEROL (VIT D3) 1000 UNIT TAB PO SCH (08:56)
[2017-04-30] MEDS: NYSTATIN SUSP 500,000 U/5 ML CUP SWISH-SWAL SCH ×4 (08:57→21:30)
--- NOTE | 2017-04-30 13:11 | HHI.IDPN ---
Note Infectious Disease Note Patient says she feels okay. Denies chills or SOB. Afebrile. Wound culture from R upper thigh has MRSA. Presented to emergency department with fever and left lower extremity pain. The patient was in the hospital after she sustained fracture of the left hip and she had a partial hip replacement and then she fell again and reinjured the leg in January. She had to have additional surgery and then she developed MRSA infection in the left hip and required a wound Vac and she was treated with IV antibiotics up until about a month ago. PAST MEDICAL HISTORY Fibromyalgia, depression, hypertension, diabetes mellitus type 2, COPD, CHF, coronary artery disease, osteoarthritis, history of AICD placement for paroxysmal atrial fibrillation, appendectomy, cholecystectomy. ALLERGIES NO KNOWN DRUG ALLERGIES. ANTIBIOTICS 1. Vancomycin. OBJECTIVE: Vital Signs Date Time Temp Pulse Resp B/P Pulse Ox O2 Delivery O2 Flow Rate FiO2 04/30/17 11:40 98.3 62 20 116/57 99 04/30/17 08:59 98 Nasal Cannula 2.00 04/30/17 07:41 97.7 59 20 124/62 99 04/30/17 04:00 98.2 58 18 119/55 97 04/30/17 00:00 96.1 63 18 109/53 99 04/29/17 21:04 98 Nasal Cannula 2.00 04/29/17 20:00 61 04/29/17 20:00 97.0 62 18 112/57 100 04/29/17 20:00 Nasal Cannula 2.00 04/29/17 16:01 98.2 59 20 120/56 99 04/29/17 04/29/17 04/30/17 15:00 23:00 07:00 Intake Total 831 ml 929 ml 712 ml Balance 831 ml 929 ml 712 ml Intake Oral 720 ml 480 ml 240 ml IV Total 111 ml 449 ml 472 ml # Voids 2 2 Microbiology Date/Time Procedure Status Source Growth 04/27/17 12:20 Aerobic Blood Culture - Preliminary Resulted Blood Peripheral Staph Sp Coagulase Negative 04/27/17 12:20 Anaerobic Blood Culture - Preliminary Resulted Blood Peripheral NO GROWTH IN 2 DAYS 04/27/17 12:25 Aerobic Blood Culture - Preliminary Resulted Blood Peripheral NO GROWTH IN 2 DAYS 04/27/17 12:25 Anaerobic Blood Culture - Preliminary Resulted Blood Peripheral NO GROWTH IN 2 DAYS 04/27/17 12:50 Gram Stain - Final Resulted Wound Leg 04/27/17 12:50 Wound Culture - Preliminary Resulted S. Aureus Mrsa IMAGING: Lower Extremity Ultrasound 04/27/17 1213 Signed Impressions: Service Date/Time: Thursday, April 27, 2017 12:57 - CONCLUSION: 1. Suboptimal evaluation of the calf veins primarily due to body habitus and edema. 2. Otherwise, no sonographic evidence for left lower extremity DVT. Warren Rodriguez MD Chest X-Ray 04/27/17 1213 Signed Impressions: Service Date/Time: Thursday, April 27, 2017 12:18 - CONCLUSION: Chronic elevation right hemidiaphragm. Left basilar subsegmental atelectasis. Cardiomegaly. Andrew Glass MD Head CT 04/27/17 0000 Signed Impressions: Service Date/Time: Thursday, April 27, 2017 14:23 - CONCLUSION: 1. Cerebral atrophy and chronic ischemic small vessel vasculopathy. 2. No acute intracranial abnormality. Andrew Glass MD Chest CT 04/27/17 0000 Signed Impressions: Service Date/Time: Thursday, April 27, 2017 17:01 - CONCLUSION: 1. Advanced cardiomegaly. 2. Minimal left basilar effusion and likely area of rounded atelectasis. 3. Ascites within the upper abdomen. 4. Enlargement of the spleen and possible cirrhosis. Boyd العراقي MD PHYSICAL EXAMINATION GENERAL: No acute distress. HEENT: Extraocular grossly intact, pupils reactive to light without icterus. Oropharynx, no visible lesions. Erythema at the tongue. Neck: Supple without adenopathy. Lungs: Clear breath sounds with slight diminished sounds at the bases. Heart: Regular S1-S2. Extremities: The left hip has a dressing in place over the area of prior wound Vac. No erythema is around at the wound which is superficially ulcerated ~ 2cm x 3cm. The left tibia erythema fading. The left inner to posterior distal thigh Still has erythema and edema. Neuro: Nonfocal. Skin: No rash. Psych: The patient is calm and cooperative. IMPRESSION 1. Cellulitis of the left lower extremity. slowly resolving. Patient with SIRS. 2. Recent MRSA infection left hip. Culture still has MRSA. 2. Chronic kidney disease. RECOMMENDATIONS Continue vancomycin x 7 more days. the MRSA is resistant to doxy. Platelets are low and would avoid Zyvox and renal failure therefore would avoid Bactrim. Vancomycin can be give at SNF from my standpoint. Order for PIC and antibiotics on chart. I will sign off. Quinn Camarillo MD Apr 30, 2017 13:11
--- NOTE | 2017-04-30 13:13 | HHI.FF ---
Infusion Therapy Location of Infusion Therapy: [facility] Infusion Therapy Order Patient Information Patient Weight 108 kg Diagnosis: (1) Cellulitis of left lower extremity Coded Allergies: *MDRO Multi-Drug Resistant Organism (Verified Adverse Reaction, Unknown, ) MRSA (leg)-04/27/17 Administer Medication Vancomycin 1 gram IV Stop Treatment: May 07, 2017 Additional Information Venous access: PICC Line Additional Instructions [x] Peripheral flush and dressing changes per protocol [x] Implanted port and central long line teamster: * Implanted port: 10 ml Normal Saline followed by 5 ml Heparin 100 units/ml Heparin flush after each use and monthly to maintain. [] May leave port accessed during therapy. [] May leave peripheral site accessed for duration of therapy. [x] If patient has SOB or respiratory distress, check oxygen saturation. If less than 90% or clinical signs of respiratory distress, administer oxygen at 2 L/min. via nasal cannula and notify physician. [x] Anaphylaxis/Reaction orders: * Stop infusion. * Keep IV line open with saline flush. * Notify physician. * Monitor vital signs every 15 minutes until symptoms resolve. * Check Oxygen saturation; Oxygen at 2 L/min. via nasal cannula if less than 90% or clinical signs of respiratory distress. * Administer diphenhydramine (Benadryl) 25 mg IV STAT, (unless patient has received as pre-med). May repeat once, if necessary. * Solu-Cortef 250 mg IVP over 30-60 seconds, use 100 mg vials for each dissolution. * Epinephrine (1mg/1 ml) 0.3 mg subcutaneously or IVP now with any signs of respiratory distress. * Check with physician for new additional pre-med orders if patient is re- challenged or re-treated. [x] May remove PICC line when treatment complete, after confirming with Physician. [x] If the patient is admitted to the hospital, the ED, or transferred via [facility] , complete transfer form including medication reconciliation order sheet. Laboratory Tests Weekly Labs: BMP, Vancomycin Trough Quinn Camarillo MD Apr 30, 2017 13:13
[2017-04-30] MEDS: MAGNESIUM OXIDE 400 MG TAB PO SCH (13:24)
[2017-04-30] MEDS: SODIUM CHLORIDE 0.9% FLUSH 10 ML FLUSH IV FLUSH SCH ×2 (13:25→21:00)
[2017-04-30 13:44] LABS: AUTOMATED NEUTROPHIL # 3.3 TH/MM3 (1.8-7.7); BASOPHIL % 0.5 % (0.0-2.0); EOSINOPHIL # 0.2 TH/MM3 (0-0.4); EOSINOPHIL % 3.7 % (0.0-4.0); HEMATOCRIT 29.3 % (35.0-46.0); HEMO FLAGS DIFF FINAL; LYMPH % 15.1 % (9.0-44.0); LYMPHOCYTE # 0.7 TH/MM3 (1.0-4.8); MEAN CELL VOLUME 84.6 FL (80.0-100.0); MEAN CORPUSCULAR HEMOGLOBIN 27.6 PG (27.0-34.0); MEAN CORPUSCULAR HGB CONC 32.6 % (32.0-36.0); NEUT % 71.7 % (16.0-70.0); PLATELET COUNT 204 TH/MM3 (150-450); RED BLOOD COUNT 3.46 MIL/MM3 (4.00-5.30); RED CELL DISTRIBUTION WIDTH 16.2 % (11.6-17.2); WHITE BLOOD COUNT 4.6 TH/MM3 (4.0-11.0)
[2017-04-30 13:50] LABS: BICARBONATE 30.1 MEQ/L (21.0-32.0); POTASSIUM 4.8 MEQ/L (3.5-5.1)
--- NOTE | 2017-04-30 16:30 | HHI.PR ---
Subjective Remarks This is a 71-year-old female who presents via EMS for evaluation. She is currently a resident of [facility] rehabilitation. According to EMS report the patient was found with a questionable left-sided facial droop by her nurse this morning. EMS did not appreciate any facial droop or change from her baseline neurologic status. She did have a elevated temperature of 99.6 as well as complaints of left lower extremity redness and pain. Upon questioning the patient reports that her left leg is been hurting her for the past few weeks. She does have a temperature 100.6 here. She is also had a cough for 1 month. Denies abdominal pain, nausea or vomiting, headache. No other complaints. The family members arrived shortly after examination. They report that the patient has been having generalized weakness for the past week. She has also seemed more confused, forgetful. 04/30: Stable seen in her bedroom, discussed with ID specialist Doctor Dontfraid she will need a PICC line placed to continue antibiotics in Rehab, with Diagnosis of Cellulitis of the left lower extremity, slowly resolving, MRSA infection on the left Hip still has MRSA, recommended to continue Vancomycin for seven days, avoid Zyvox due to thrombocytopenia, avoid Bactrim recommended to consult Nephrology specialist due to Chronic Kidney Disease. No nausea, vomit or diarrhea. Objective Vital Signs Date Time Temp Pulse Resp B/P Pulse Ox O2 Delivery O2 Flow Rate FiO2 04/30/17 15:57 97.3 60 20 115/58 96 04/30/17 11:40 98.3 62 20 116/57 99 04/30/17 08:59 98 Nasal Cannula 2.00 04/30/17 07:41 97.7 59 20 124/62 99 04/30/17 04:00 98.2 58 18 119/55 97 04/30/17 00:00 96.1 63 18 109/53 99 04/29/17 21:04 98 Nasal Cannula 2.00 04/29/17 20:00 61 04/29/17 20:00 97.0 62 18 112/57 100 04/29/17 20:00 Nasal Cannula 2.00 I/O 04/29/17 04/29/17 04/29/17 04/30/17 04/30/17 04/30/17 07:00 15:00 23:00 07:00 15:00 23:00 Intake Total 480 ml 831 ml 929 ml 712 ml 720 ml Balance 480 ml 831 ml 929 ml 712 ml 720 ml Intake Oral 720 ml 480 ml 240 ml 720 ml IV Total 480 ml 111 ml 449 ml 472 ml # Voids 2 2 2 4 # Bowel Movements 2 Result Diagram: 04/30/17 1324 04/30/17 1324 Imaging Last Impressions Lower Extremity Ultrasound 04/27/17 1213 Signed Impressions: Service Date/Time: Thursday, April 27, 2017 12:57 - CONCLUSION: 1. Suboptimal evaluation of the calf veins primarily due to body habitus and edema. 2. Otherwise, no sonographic evidence for left lower extremity DVT. Warren Rodriguez MD Chest X-Ray 04/27/17 1213 Signed Impressions: Service Date/Time: Thursday, April 27, 2017 12:18 - CONCLUSION: Chronic elevation right hemidiaphragm. Left basilar subsegmental atelectasis. Cardiomegaly. Andrew Glass MD Head CT 04/27/17 0000 Signed Impressions: Service Date/Time: Thursday, April 27, 2017 14:23 - CONCLUSION: 1. Cerebral atrophy and chronic ischemic small vessel vasculopathy. 2. No acute intracranial abnormality. Andrew Glass MD Chest CT 04/27/17 0000 Signed Impressions: Service Date/Time: Thursday, April 27, 2017 17:01 - CONCLUSION: 1. Advanced cardiomegaly. 2. Minimal left basilar effusion and likely area of rounded atelectasis. 3. Ascites within the upper abdomen. 4. Enlargement of the spleen and possible cirrhosis. Boyd العراقي MD Procedures No procedures performed. Other Results Laboratory Tests Test 04/27/17 04/27/17 04/27/17 04/29/17 12:20 12:50 19:19 21:05 Prothrombin Time 13.5 SEC Prothromb Time International 1.2 RATIO Ratio Activated Partial 37.5 SEC Thromboplast Time Total Bilirubin 1.4 MG/DL Aspartate Amino Transf 20 U/L (AST/SGOT) Alanine Aminotransferase 14 U/L (ALT/SGPT) Alkaline Phosphatase 163 U/L Total Protein 5.5 GM/DL Albumin 2.3 GM/DL Urine Color YELLOW Urine Turbidity CLEAR Urine pH 5.5 Urine Specific [place] 1.017 Urine Protein TRACE mg/dL Urine Glucose (UA) NEG mg/dL Urine Ketones NEG mg/dL Urine Occult Blood NEG Urine Nitrite NEG Urine Bilirubin NEG Urine Urobilinogen LESS THAN 2.0 MG/DL Urine Leukocyte Esterase NEG Urine RBC LESS THAN 1 /hpf Urine WBC 1 /hpf Urine Squamous Epithelial <1 /hpf Cells Urine Hyaline Casts 4 /lpf Urine Mucus FEW /lpf Microscopic Urinalysis Comment CATH-CULT NOT IND Lactic Acid Level 1.3 mmol/L Vancomycin Level Trough 17.5 MCG/ML Test 04/30/17 13:24 White Blood Count 4.6 TH/MM3 Red Blood Count 3.46 MIL/MM3 Hemoglobin 9.5 GM/DL Hematocrit 29.3 % Mean Corpuscular Volume 84.6 FL Mean Corpuscular Hemoglobin 27.6 PG Mean Corpuscular Hemoglobin 32.6 % Concent Red Cell Distribution Width 16.2 % Platelet Count 204 TH/MM3 Mean Platelet Volume 8.3 FL Neutrophils (%) (Auto) 71.7 % Lymphocytes (%) (Auto) 15.1 % Monocytes (%) (Auto) 9.0 % Eosinophils (%) (Auto) 3.7 % Basophils (%) (Auto) 0.5 % Neutrophils # (Auto) 3.3 TH/MM3 Lymphocytes # (Auto) 0.7 TH/MM3 Monocytes # (Auto) 0.4 TH/MM3 Eosinophils # (Auto) 0.2 TH/MM3 Basophils # (Auto) 0.0 TH/MM3 CBC Comment DIFF FINAL Differential Comment Sodium Level 138 MEQ/L Potassium Level 4.8 MEQ/L Chloride Level 104 MEQ/L Carbon Dioxide Level 30.1 MEQ/L Anion Gap 4 MEQ/L Blood Urea Nitrogen 25 MG/DL Creatinine 1.57 MG/DL Estimat Glomerular Filtration 32 ML/MIN Rate Random Glucose 120 MG/DL Calcium Level 9.7 MG/DL Objective Remarks GENERAL: Obesity, oriented in person and place. SKIN: Warm and dry. The patient has erythema on the left lower extremity. She has a wound with a dressing in the left groin region. no drainage at this time HEAD: Atraumatic. Normocephalic. EYES: Pupils equal and round. No scleral icterus. No injection or drainage. ENT: No nasal bleeding or discharge. Mucous membranes pink and moist. NECK: Trachea midline. No JVD. CARDIOVASCULAR: Regular rate and rhythm. Systolic murmur appreciated. RESPIRATORY: No accessory muscle use. Clear to auscultation. Breath sounds equal bilaterally. GASTROINTESTINAL: Abdomen soft, non-tender, nondistended. Hepatic and splenic margins not palpable. MUSCULOSKELETAL: No obvious deformities. No clubbing. No cyanosis. No edema. NEUROLOGICAL: Awake and alert. No focal deficits. Medications and IVs Current Medications Medications (Trade) Dose Ordered Sig/Marbin Route Start Time Stop Time Status Last Admin (Xanax) 0.5 mg HS PO 04/27/17 21:00 04/29/17 21:51 (Eliquis) 2.5 mg BID PO 04/27/17 21:00 04/30/17 08:56 (Vitamin D3) 2,000 units DAILY PO 04/28/17 09:00 04/30/17 08:56 (Cymbalta Dr) 30 mg DAILY PO 04/28/17 09:00 04/30/17 08:56 (PROzac) 40 mg HS PO 04/27/17 21:00 04/29/17 21:50 (Lasix) 20 mg DAILY PO 04/28/17 09:00 04/30/17 08:56 (Robitussin Dm 200-20 Mg/10 ml Liq) 10 ml Q6HR PRN PO 04/27/17 15:30 ([place] 7.5-325 Mg) 1 tab Q4H PRN PO 04/27/17 15:30 04/29/17 21:51 (Xalatan 0.005% Opth Soln) 1 drop HS EACH EYE 04/27/17 21:00 04/29/17 21:52 (Synthroid) 112 mcg DAILY@0600 PO 04/28/17 06:00 04/30/17 05:05 (Lopressor) 25 mg Q12HR PO 04/27/17 21:00 04/30/17 08:56 (KCl) 10 meq DAILY PO 04/28/17 09:00 04/30/17 08:56 (Ferrous Sulfate) 325 mg TID PO 04/27/17 18:00 04/30/17 13:24 (Mag-Ox) 400 mg DAILY PO 04/28/17 09:00 04/30/17 13:24 (Theragran M Tab) 1 tab DAILY PO 04/28/17 09:00 04/30/17 08:56 Lactobacillus Acidophilus 1 tab 1 tab BID PO 04/27/17 21:00 04/30/17 08:55 (NS 1000 ml Inj) 1,000 ml @ 60 mls/hr [id number] IV 04/27/17 15:20 04/30/17 00:06 (NS Flush) 2 ml UNSCH PRN IV FLUSH 04/27/17 15:30 (NS Flush) 2 ml BID IV FLUSH 04/27/17 21:00 04/30/17 13:25 (Tylenol) 650 mg Q4H PRN PO 04/27/17 15:30 (Zofran Inj) 4 mg Q6H PRN IVP 04/27/17 15:30 (Narcan Inj) 0.4 mg UNSCH PRN IV 04/27/17 15:30 (Tiffanie-Colace) 1 tab BID PO 04/27/17 21:00 04/30/17 08:56 (Milk Of Magnesia Liq) 30 ml Q12H PRN PO 04/27/17 15:30 (Senokot) 17.2 mg Q12H PRN PO 04/27/17 15:30 (Dulcolax Supp) 10 mg DAILY PRN RECTAL 04/27/17 15:30 Lactulose 30 ml 30 ml DAILY PRN PO 04/27/17 15:30 (Vancomycin Consult Pharmacy) 0 ml @ 0 mls/hr UNSCH OTHER 04/27/17 15:30 (D50w (Vial) Inj) 25 ml UNSCH PRN IV PUSH 04/27/17 16:00 Glucagon 1 mg 1 mg UNSCH PRN OTHER 04/27/17 16:00 (Vancomycin Inj/ NS 500 ml Inj) 515 ml @ 250 mls/hr Q24H IV 04/27/17 21:00 04/29/17 21:52 (Mycostatin Liq) 5 ml QID SWISH-SWAL 04/28/17 18:00 04/30/17 13:24 Miscellaneous Information SPECIFIC LAB TO BE DRAWN: VANCO TROUGH DATE TO BE DRJuan Luis.. ONCE ONCE .XX 04/30/17 20:45 04/30/17 20:46 A/P Assessment and Plan 1. SIRS probable secondary to Left leg cellulitis, not confirmed Pneumonia rule out this diagnosis, as per ID specialist Doctor Dontfraid she will need a PICC line placed to continue antibiotics in Rehab, with Diagnosis of Cellulitis of the left lower extremity, slowly resolving, MRSA infection on the left Hip still has MRSA, recommended to continue Vancomycin for seven days, avoid Zyvox due to thrombocytopenia, avoid Bactrim recommended to consult Nephrology specialist due to Chronic Kidney Disease. Discontinued Zosyn. 2. Left Leg Cellulitis, continue wound care, Vancomycin for seven days more, MRSA positive. 3. Questionable facial droop CT grain negative for acute infarct, or hemorrhage 4. OA by History/Fibromyalgia 5. Anxiety disorder/Depression to continue Home medicines 6. PAF status post AICD and Medicines continue, at this time Pacemaker Interrogated she had fired her AICD 7. CAD/Hypertension/CHF stable no signs of Overload. 8. COPD on Bronchodilator, Mucolytic and incentive spirometry. 9. DM II continue sliding scale for now, Stable. 10. Obesity strongly recommended diet and exercise 11. Deconditioning, she is been in Rehab but not improving her Rehab has been terminated for May 03 and will be discharged but not improving, got PT eval and High Risk Case Manager here 12. 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 Code Status Full Code. Consulted Nephrology High Risk Case Manager for discharge to Rehab probable tomorrow Discharge Planning Expected by tomorrow to Rehab if PICC line Placed. Dariusz Ayala MD Apr 30, 2017 16:30
--- NOTE | 2017-04-30 17:45 | PD.CONS ---
HPI Consult Requested By Reason for Consult Chronic kidney disease. Primary Care Physician Ren Vickers MD History of Present Illness This patient is a 71-year-old female with a history of chronic kidney disease stage III, diabetes mellitus type 2, hypertension as well as CHF admitted with a left lower extremity cellulitis. Patient is scheduled to receive vancomycin until the 30 of this month as recommended by infectious disease for MRSA infection. Apparently consideration is being given to placement of a PICC line. The patient has had a PICC line in the past by history also. Presently no verbal complaints except generalized weakness. Patient is establish with a stage rigger in [place] who does not come to this institution. I.e. Dr. Thacker and or his associate. Review of Systems Constitutional: COMPLAINS OF: Fatigue, DENIES: Diaphoretic episodes, Fever, Weight gain, Weight loss, Chills, Dizziness, Change in appetite, Night Sweats Endocrine: DENIES: Abnorml menstrual pattern, Heat/cold intolerance, Polydipsia , Polyuria, Polyphagia Cardiovascular: DENIES: Chest pain, Palpitations, Syncope, Dyspnea on Exertion , PND, Lower Extremity Edema, Orthopnea, Claudication Gastrointestinal: DENIES: Abdominal pain, Black stools, Bloody stools, Constipation, Diarrhea, Nausea, Vomiting, Difficulty Swallowing, Anorexia Musculoskeletal: COMPLAINS OF: Joint pain, DENIES: Muscle aches, Stiffness, Joint Swelling, Back pain, Neck pain Past Family Social History Allergies: Coded Allergies: *MDRO Multi-Drug Resistant Organism (Verified Adverse Reaction, Unknown, ) MRSA (leg)-04/27/17 Past Medical History Chronic kidney disease stage III Hypertension CHF COPD Diabetes mellitus type 2 Coronary disease Fibromyalgia. Past Surgical History AICD placement Cholecystectomy Appendectomy Reported Medications Reported Meds & Active Scripts Active Reported Zofran (Ondansetron HCl) 4 Mg Tab 4 Mg PO Q6HR PRN Guaifenesin-Dm Liq (Guaifenesin/Dextromethorphan) 100-10 Mg/5 Ml Syrp 10 Ml PO Q6HR PRN Sugar Free Hanna (Hydrocodone-Acetaminophen) 7.5-325 mg Tab 1 Tab PO Q4H PRN Duoneb (Ipratropium-Albuterol Neb) 0.5-2.5 Mg/3 Ml Neb 3 Ml NEB Q6HR [address] (Ferrous Sulfate) 325 Mg Tabdr 325 Mg PO TID Augmentin (Amoxicillin-Clavulanate) 500-125 mg Tab 1 Tab PO TID 10 Days Minocin (Minocycline HCl) 100 Mg Cap 100 Mg PO BID 42 Days X 6 WEEKS Metoprolol Tartrate 25 Mg Tab 25 Mg PO Q12HR Humalog Inj (Insulin Human Lispro) 1,000 Unit/10 Ml Vial 2-10 Units SQ BID Sliding Scale: if 151-200=2 units, call MD if <70, 201-250=4 units, 251-300=6 units, 301-350=8 units, 351-400=10 units, call MD if >401; twice a day before breakfast and at bedtime Colace (Docusate Sodium) 100 Mg Capsule 100 Mg PO Q12HR Diff-Stat (Probiotic Product) 1 Cap Cap 1 Cap PO BID 60 Days Eliquis (Apixaban) 2.5 Mg Tab 2.5 Mg PO BID Xanax (Alprazolam) 0.5 Mg Tab 0.5 Mg PO HS Hold for sedation Xalatan Opth Drops (Latanoprost) 0.005% Drops 1 Drop EACH EYE HS Tradjenta (Linagliptin) 5 Mg Tab 5 Mg PO DAILY Prozac (Fluoxetine HCl) 20 Mg Cap 40 Mg PO HS Potassium Chloride ER (Potassium Chloride) 10 Meq Cap 10 Meq PO DAILY Multi-Vitamin/Minerals (Multiple Vitamins W/ Minerals) 1 Tab Tab 1 Tab PO DAILY Miralax Powder (Polyethylene Glycol 3350 Powder) 17 Gm Powd 17 Gm PO DAILY Mix and dissolve one measuring capful (17 grams) in water or juice. Magnesium Oxide 500 Mg Tab 500 Mg PO DAILY Levothyroxine (Levothyroxine Sodium) 112 Mcg Tab 112 Mcg PO DAILY Lasix (Furosemide) 20 Mg Tab 20 Mg PO DAILY Ergocalciferol 50,000 Unit Cap 50,000 Units PO WEEKLY Saturdays Cymbalta DR (Duloxetine HCl) 30 Mg Capdr 30 Mg PO DAILY Vitamin D3 (Cholecalciferol) 1,000 Unit Tab 2,000 Units PO DAILY Active Ordered Medications Current Medications Sodium Chloride 1,000 ml @ 1,000 mls/hr Q1H IV ; Start 04/27/17 at 12:13; Stop 04/27/17 at 12:21; Status DC Sodium Chloride (NS 1000 ml Inj) 1,000 ml @ 1,000 mls/hr Q1H IV Last administered on 04/27/17 12:24; Start 04/27/17 at 12:13; Stop 04/27/17 at 13:12 ; Status DC Acetaminophen 650 mg 650 mg ONCE ONCE PO Last administered on 04/27/17 12:35 ; Start 04/27/17 at 12:30; Stop 04/27/17 at 12:31; Status DC Vancomycin HCl 1000 mg/Sodium Chloride 250 ml @ 250 mls/hr ONCE ONCE IV Last administered on 04/27/17 12:34; Start 04/27/17 at 12:30; Stop 04/27/17 at 13:29 ; Status DC Piperacillin Sod/ Tazobactam Sod (Zosyn 3.375 Gm Premix) 50 ml @ 100 mls/hr ONCE ONCE IV Last administered on 04/27/17 12:34; Start 04/27/17 at 12:30; Stop 04/27/17 at 12:59; Status DC Alprazolam (Xanax) 0.5 mg HS PO Last administered on 04/29/17 21:51; Start at 21:00 Apixaban (Eliquis) 2.5 mg BID PO Last administered on 04/30/17 08:56; Start at 21:00 Cholecalciferol (Vitamin D3) 2,000 units DAILY PO Last administered on 08:56; Start 04/28/17 at 09:00 Duloxetine HCl (Cymbalta Dr) 30 mg DAILY PO Last administered on 04/30/17 08: 56; Start 04/28/17 at 09:00 Fluoxetine HCl (PROzac) 40 mg HS PO Last administered on 04/29/17 21:50; Start 04/27/17 at 21:00 Furosemide (Lasix) 20 mg DAILY PO Last administered on 04/30/17 08:56; Start 04/28/17 at 09:00 Guaifenesin/ Dextromethorphan (Robitussin Dm 200-20 Mg/10 ml Liq) 10 ml Q6HR PRN PO COUGH; Start 04/27/17 at 15:30 Acetaminophen/ Hydrocodone Bitart ([place] 7.5-325 Mg) 1 tab Q4H PRN PO PAIN Last administered on 04/29/17 21:51; Start 04/27/17 at 15:30 Latanoprost (Xalatan 0.005% Opth Soln) 1 drop HS EACH EYE Last administered on 04/29/17 21:52; Start 04/27/17 at 21:00 Levothyroxine Sodium (Synthroid) 112 mcg DAILY@0600 PO Last administered on 05:05; Start 04/28/17 at 06:00 Metoprolol Tartrate (Lopressor) 25 mg Q12HR PO Last administered on 04/30/17 08:56; Start 04/27/17 at 21:00 Potassium Chloride (KCl) 10 meq DAILY PO Last administered on 04/30/17 08:56; Start 04/28/17 at 09:00 Ferrous Sulfate (Ferrous Sulfate) 325 mg TID PO Anemia Last administered on 04/30 13:24; Start 04/27/17 at 18:00 Magnesium Oxide (Mag-Ox) 400 mg DAILY PO Last administered on 04/30/17 13:24; Start 04/28/17 at 09:00 Multivitamins/ Minerals Therapeutic (Theragran M Tab) 1 tab DAILY PO Last administered on 04/30/17 08:56; Start 04/28/17 at 09:00 Lactobacillus Acidophilus 1 tab 1 tab BID PO Last administered on 04/30/17 08: 55; Start 04/27/17 at 21:00 Sodium Chloride (NS 1000 ml Inj) 1,000 ml @ 60 mls/hr [id number] IV Last administered on 04/30/17 00:06; Start 04/27/17 at 15:20 Sodium Chloride (NS Flush) 2 ml UNSCH PRN IV FLUSH FLUSH AFTER USING IV ACCESS ; Start 04/27/17 at 15:30 Sodium Chloride (NS Flush) 2 ml BID IV FLUSH Last administered on 04/30/17 13: 25; Start 04/27/17 at 21:00 Acetaminophen (Tylenol) 650 mg Q4H PRN PO TEMP > 100.4; Start 04/27/17 at 15:30 Ondansetron HCl (Zofran Inj) 4 mg Q6H PRN IVP NAUSEA OR VOMITING; Start at 15:30 Naloxone HCl (Narcan Inj) 0.4 mg UNSCH PRN IV SEE LABEL COMMENTS; Start at 15:30 Senna/Docusate Sodium (Tiffanie-Colace) 1 tab BID PO Last administered on 08:56; Start 04/27/17 at 21:00 Magnesium Hydroxide (Milk Of Magnsuad Liq) 30 ml Q12H PRN PO MILD - MODERATE CONSTIPATION; Start 04/27/17 at 15:30 Sennosides (Senokot) 17.2 mg Q12H PRN PO MODERATE - SEVERE CONSTIPATION; Start 04/27/17 at 15:30 Bisacodyl (Dulcolax Supp) 10 mg DAILY PRN RECTAL SEVERE CONSITIPATION; Start at 15:30 Lactulose 30 ml 30 ml DAILY PRN PO SEVERE CONSITIPATION; Start 04/27/17 at 15: 30 Pharmacy Profile Note 0 ml @ 0 mls/hr UNSCH OTHER ; Start 04/27/17 at 15:30 Piperacillin Sod/ Tazobactam Sod (Zosyn 3.375 Gm Premix) 50 ml @ 100 mls/hr Q6H IV Last administered on 04/29/17 14:37; Start 04/27/17 at 18:30; Stop at 17:02; Status DC Albuterol/ Ipratropium (Duoneb Neb) 1 ampule Q4HR NEB NEB Last administered on 04/30/17 16:00; Start 04/27/17 at 16:00 Insulin Human Regular (NovoLIN R SUPPLEMENTAL SCALE) 1 ACHS SLIDING SCALE SQ Last administered on 04/29/17 21:00; Start 04/27/17 at 16:00 Naloxone HCl (Narcan Inj) 0.4 mg UNSCH PRN IV SEE LABEL COMMENTS; Start at 15:30; Stop 04/27/17 at 15:50; Status DC Dextrose (D50w (Vial) Inj) 25 ml UNSCH PRN IV PUSH HYPOGLYCEMIA - SEE COMMENTS ; Start 04/27/17 at 16:00 Glucagon 1 mg 1 mg UNSCH PRN OTHER HYPOGLYCEMIA-SEE COMMENTS; Start 04/27/17 at 16:00 Vancomycin HCl/ Sodium Chloride (Vancomycin Inj/ NS 500 ml Inj) 515 ml @ 250 mls/hr Q24H IV Last administered on 04/29/17 21:52; Start 04/27/17 at 21:00 Miscellaneous Information SPECIFIC LAB TO BE DRAWN:VANCOMYCIN TROUGH DATE TO... ONCE ONCE .XX Last administered on 04/29/17 20:45; Start 04/29/17 at 20:45; Stop 04/29/17 at 20:46; Status DC Albuterol/ Ipratropium (Duoneb Neb) 1 ampule QID NEB NEB Last administered on 04/30/17 09:12; Start 04/27/17 at 20:00 Nystatin (Mycostatin Liq) 5 ml QID SWISH-SWAL Last administered on 04/30/17 13:24; Start 04/28/17 at 18:00 Miscellaneous Information SPECIFIC LAB TO BE DRAWN: VANCO TROUGH DATE TO BE DR... ONCE ONCE .XX ; Start 04/30/17 at 20:45; Stop 04/30/17 at 20:46 Family History Noncontributory to current complaint. Social History As per H&P. Patient will be discharged to a rehabilitation center. Physical Exam Vital Signs Vital Signs Date Time Temp Pulse Resp B/P Pulse Ox O2 Delivery O2 Flow Rate FiO2 04/30/17 16:27 96 Nasal Cannula 2.00 04/30/17 15:57 97.3 60 20 115/58 96 04/30/17 11:40 98.3 62 20 116/57 99 04/30/17 08:59 98 Nasal Cannula 2.00 04/30/17 07:41 97.7 59 20 124/62 99 04/30/17 04:00 98.2 58 18 119/55 97 04/30/17 00:00 96.1 63 18 109/53 99 04/29/17 21:04 98 Nasal Cannula 2.00 04/29/17 20:00 61 04/29/17 20:00 97.0 62 18 112/57 100 04/29/17 20:00 Nasal Cannula 2.00 Physical Exam GENERAL: The patient looks significantly older than her stated age and very debilitated in appearance. SKIN: Warm and dry. HEAD: Normocephalic. EYES: No scleral icterus. No injection or drainage. NECK: Supple, trachea midline. No JVD or lymphadenopathy. CARDIOVASCULAR: Regular rate and rhythm without murmurs, gallops, or rubs. RESPIRATORY: Breath sounds equal bilaterally. No accessory muscle use. GASTROINTESTINAL: Abdomen soft, non-tender, nondistended. MUSCULOSKELETAL: No cyanosis, or edema. Musculature limbs appears to be somewhat wasted. BACK:. No CVA tenderness. Laboratory Laboratory Tests Test 04/29/17 04/30/17 21:05 13:24 Vancomycin Level Trough 17.5 White Blood Count 4.6 Red Blood Count 3.46 Hemoglobin 9.5 Hematocrit 29.3 Mean Corpuscular Volume 84.6 Mean Corpuscular Hemoglobin 27.6 Mean Corpuscular Hemoglobin 32.6 Concent Red Cell Distribution Width 16.2 Platelet Count 204 Mean Platelet Volume 8.3 Neutrophils (%) (Auto) 71.7 Lymphocytes (%) (Auto) 15.1 Monocytes (%) (Auto) 9.0 Eosinophils (%) (Auto) 3.7 Basophils (%) (Auto) 0.5 Neutrophils # (Auto) 3.3 Lymphocytes # (Auto) 0.7 Monocytes # (Auto) 0.4 Eosinophils # (Auto) 0.2 Basophils # (Auto) 0.0 CBC Comment DIFF FINAL Differential Comment Sodium Level 138 Potassium Level 4.8 Chloride Level 104 Carbon Dioxide Level 30.1 Anion Gap 4 Blood Urea Nitrogen 25 Creatinine 1.57 Estimat Glomerular Filtration 32 Rate Random Glucose 120 Calcium Level 9.7 Date/Time Procedure Status Source Growth 04/27/17 12:50 Gram Stain - Final Complete Wound Leg 04/27/17 12:50 Wound Culture - Final Complete S. Aureus Mrsa 04/27/17 12:25 Aerobic Blood Culture - Preliminary Resulted Blood Peripheral NO GROWTH IN 3 DAYS 04/27/17 12:25 Anaerobic Blood Culture - Preliminary Resulted Blood Peripheral NO GROWTH IN 3 DAYS Result Diagram: 04/30/17 1324 04/30/17 1324 Assessment and Plan Problem List: (1) CKD (chronic kidney disease) stage 3, GFR 30-59 ml/min Plan: The patient's creatinine level appears to be at baseline by history. No change in renal indices of significance since admission. Nothing to recommend as far as evaluation and management of her CKD is concerned except follow-up with her outpatient stage rigger as planned. As far as placement of the PICC line is concerned this patient already has had a PICC line in the past and her GFR is markedly impaired. I believe that there is significant risk for development of end-stage renal disease in the future and would like to avoid further PICC line placement if possible which may damage veins required placement of an AV dialysis fistula in the future. Suggest Julio catheter IJ if feasible. If the PICC line is required consider using dominant upper extremity and trying to preserve veins in her nondominant upper extremity for fistula placement in the future. As mentioned above however I would like to avoid PICC line placement if at all possible. Medications should be adjusted for the patient's estimated GFR if clinically indicated. Avoid agents with significant potential for nephrotoxicity possible including NSAIDs for analgesia, iodine contrast agents. Gadolinium is contraindicated if the GFR is below 30. Follow-up with her primary stage rigger post discharge. This patient will be seen when necessary in house. Please recall if needed. (2) Diabetic nephropathy associated with type 2 diabetes mellitus (3) History of congestive heart failure Hung Gutierrez MD Apr 30, 2017 17:45
--- NOTE | 2017-04-30 20:21 | HHI.PR ---
Subjective Remarks She is alert and feels OK. On O2 2l. Not able to sit up. On antibiotics for cellulitis. Leg edema is down Objective Vital Signs Date Time Temp Pulse Resp B/P Pulse Ox O2 Delivery O2 Flow Rate FiO2 04/30/17 19:00 58 04/30/17 16:27 96 Nasal Cannula 2.00 04/30/17 15:57 97.3 60 20 115/58 96 04/30/17 11:40 98.3 62 20 116/57 99 04/30/17 08:59 98 Nasal Cannula 2.00 04/30/17 07:41 97.7 59 20 124/62 99 04/30/17 04:00 98.2 58 18 119/55 97 04/30/17 00:00 96.1 63 18 109/53 99 04/29/17 21:04 98 Nasal Cannula 2.00 I/O 04/29/17 04/29/17 04/29/17 04/30/17 04/30/17 04/30/17 07:00 15:00 23:00 07:00 15:00 23:00 Intake Total 480 ml 831 ml 929 ml 712 ml 720 ml Balance 480 ml 831 ml 929 ml 712 ml 720 ml Intake Oral 720 ml 480 ml 240 ml 720 ml IV Total 480 ml 111 ml 449 ml 472 ml # Voids 2 2 2 4 # Bowel Movements 2 Result Diagram: 04/30/17 1324 04/30/17 1324 Procedures No procedures performed. Objective Remarks GENERAL: This moderately obese, elderly lady in bed. She was pale and in no acute distress. She has no clubbing. There is mild peripheral edema. The left leg is swollen . No calf tenderness. HEENT: Head normocephalic. Pupils are reactive and equal. Tongue is moist. Throat was clear. The lips are clear. Ears no inflammation. NECK: Supple without venous distension. Trachea midline. CHEST: Equal movements with decreased breath sounds of the bases with occasional wheezes bilaterally. Crackles at the left base. CARDIOVASCULAR: Heart sounds are regular S1-S2 with a systolic murmur 2/6 at the sternal border. ABDOMEN: Soft, protuberant without masses. No organomegaly or tenderness. Bowel sounds are active. EXTREMITIES: Left leg edema with redness of the skin from thigh downwards and the right leg has mild edema. The patient is unable to lift the left leg. She is moving the right extremities. Babinski negative. NEUROLOGIC: The patient has no focal neuro deficits. RECTAL: Exam is deferred. Assessment and Plan Assessment and Plan IMPRESSION 1. Left leg cellulitis with SIRS. 2. Possible early pneumonia left base. 3. COPD. 4. CHF, compensated. 5. History of hypertension. 6. Diabetes mellitus type 2. 7. Severe deconditioning. 8. Status post left hip arthroplasty. 9. Obstructive sleep apnea. Plan : 1. Cont antibiotics.Per ID 2. Cont Nebs qid , duoneb 3. O2 at 2 L 4. IS q3h at bedside 5. Anticoagulation with Eliquis 6. Rehab placement Kamlesh Spence MD Apr 30, 2017 20:21
[2017-04-30] MEDS ORDERED: PHARMACY ORDERED LAB ONE (20:45)
[2017-04-30] MEDS: LATANOPROST 0.005% OPHT SOLN 2.5 ML BTL EACH EYE SCH (21:00)
[2017-04-30] MEDS: VANCOMYCIN INJ 1,500 MG in SODIUM CHLORID 0.9% 500 ML INJ 500 ML IV SCH (21:00)
[2017-04-30] MEDS: ALPRAZolam 0.5 MG TAB PO SCH (21:31)
[2017-04-30] MEDS: ACETAMINOPHEN/HYDROcodone 325 MG/7.5 MG TAB PO PRN (21:31)
[2017-04-30] MEDS: FLUoxetine HCL 20 MG CAP PO SCH (21:31)
[2017-05-01] VITALS (9 sets, daily range): BP systolic 108–130; BP diastolic 44–62; PULSE 57–80; RESP 16–20; TEMP 97.3–98.7; O2SAT 94–100
[2017-05-01] MEDS: RESP: ALBUTEROL 2.5 MG/IPRATROPIUM 0.5 MG NEB (SCH) NEB ×6 (03:42→16:07)
[2017-05-01] MEDS: LEVOTHYROXINE SODIUM 112 MCG TAB PO SCH (06:38)
[2017-05-01] MEDS: INSULIN NovoLIN REGULAR SUPPLEMENTAL SCALE SQ SCH ×4 (06:41→21:00)
[2017-05-01] MEDS: SODIUM CHLORIDE 0.9% FLUSH 10 ML FLUSH IV FLUSH SCH ×2 (09:00→21:00)
[2017-05-01] MEDS: METOPROLOL TARTRATE 25 MG TAB PO SCH ×2 (09:00→20:59)
[2017-05-01] MEDS: DOCUSATE SODIUM 50 MG/SENNA 8.6 MG TAB PO SCH ×2 (09:00→21:00)
[2017-05-01] MEDS: SODIUM CHLOR 0.9% 1000 ML INJ 1,000 ML IV SCH (09:26)
[2017-05-01] MEDS: NYSTATIN SUSP 500,000 U/5 ML CUP SWISH-SWAL SCH ×4 (09:39→20:59)
[2017-05-01] MEDS: LACTOBACILLUS ACIDOPHILUS TAB PO SCH ×2 (09:39→20:59)
[2017-05-01] MEDS: CHOLECALCIFEROL (VIT D3) 1000 UNIT TAB PO SCH (09:39)
[2017-05-01] MEDS: POTASSIUM CHLORIDE 10 MEQ CAP PO SCH (09:40)
[2017-05-01] MEDS: MAGNESIUM OXIDE 400 MG TAB PO SCH (09:40)
[2017-05-01] MEDS: DULoxetine HCl DR 30 MG CAP PO SCH (09:40)
[2017-05-01] MEDS: APIXABAN 2.5 MG TABLET PO SCH ×2 (09:40→20:59)
[2017-05-01] MEDS: MULTIVITAMINS/MINERALS THERAPEUTIC TAB PO SCH (09:40)
[2017-05-01] MEDS: FERROUS SULFATE 325 MG (65 MG ELEMENTAL IRON) TAB PO SCH ×3 (09:40→17:38)
[2017-05-01] MEDS: FUROSEMIDE 20 MG TAB PO SCH (09:40)
--- NOTE | 2017-05-01 10:33 | HHI.PR ---
Subjective Remarks This is a 71-year-old female who presents via EMS for evaluation. She is currently a resident of [facility] [place] rehabilitation. According to EMS report the patient was found with a questionable left-sided facial droop by her nurse this morning. EMS did not appreciate any facial droop or change from her baseline neurologic status. She did have a elevated temperature of 99.6 as well as complaints of left lower extremity redness and pain. Upon questioning the patient reports that her left leg is been hurting her for the past few weeks. She does have a temperature 100.6 here. She is also had a cough for 1 month. Denies abdominal pain, nausea or vomiting, headache. No other complaints. The family members arrived shortly after examination. They report that the patient has been having generalized weakness for the past week. She has also seemed more confused, forgetful. 04/30: Stable seen in her bedroom, discussed with ID specialist Doctor Rabia she will need a PICC line placed to continue antibiotics in Rehab, with Diagnosis of Cellulitis of the left lower extremity, slowly resolving, MRSA infection on the left Hip still has MRSA, recommended to continue Vancomycin for seven days, avoid Zyvox due to thrombocytopenia, avoid Bactrim recommended to consult Nephrology specialist due to Chronic Kidney Disease. 05/01: Seen in her bedroom in the presence of nurse Miss Dietz she will need to continue on Vancomycin, recommended by ID specialist for PICC line but not recommended by Nephrology specialist recommended Julio cath IJ, we will have Special procedures team on Wednesday meaning in two days more, I will discuss with Doctor Rabia if possible she will get the IJ and discharge to SNF. No nausea, vomit or diarrhea. Objective Vital Signs Date Time Temp Pulse Resp B/P Pulse Ox O2 Delivery O2 Flow Rate FiO2 05/01/17 09:48 94 Nasal Cannula 2.00 05/01/17 09:46 59 115/57 05/01/17 08:07 97.9 58 16 118/44 97 05/01/17 04:00 97.9 59 20 108/53 100 05/01/17 00:00 97.6 57 20 127/62 100 04/30/17 20:00 98.3 60 20 124/60 100 04/30/17 19:52 100 Nasal Cannula 2.00 04/30/17 19:00 58 04/30/17 16:27 96 Nasal Cannula 2.00 04/30/17 15:57 97.3 60 20 115/58 96 04/30/17 11:40 98.3 62 20 116/57 99 I/O 04/30/17 04/30/17 04/30/17 05/01/17 05/01/17 05/01/17 06:59 14:59 22:59 06:59 14:59 22:59 Intake Total 712 ml 720 ml Balance 712 ml 720 ml Intake Oral 240 ml 720 ml IV Total 472 ml # Voids 2 4 4 # Bowel Movements 2 Result Diagram: 04/30/17 1324 05/01/17 0815 Imaging Last Impressions Lower Extremity Ultrasound 04/27/17 1213 Signed Impressions: Service Date/Time: Thursday, April 27, 2017 12:57 - CONCLUSION: 1. Suboptimal evaluation of the calf veins primarily due to body habitus and edema. 2. Otherwise, no sonographic evidence for left lower extremity DVT. Warren Rodriguez MD Chest X-Ray 04/27/17 1213 Signed Impressions: Service Date/Time: Thursday, April 27, 2017 12:18 - CONCLUSION: Chronic elevation right hemidiaphragm. Left basilar subsegmental atelectasis. Cardiomegaly. Andrew Glass MD Head CT 04/27/17 0000 Signed Impressions: Service Date/Time: Thursday, April 27, 2017 14:23 - CONCLUSION: 1. Cerebral atrophy and chronic ischemic small vessel vasculopathy. 2. No acute intracranial abnormality. Andrew Glass MD Chest CT 04/27/17 0000 Signed Impressions: Service Date/Time: Thursday, April 27, 2017 17:01 - CONCLUSION: 1. Advanced cardiomegaly. 2. Minimal left basilar effusion and likely area of rounded atelectasis. 3. Ascites within the upper abdomen. 4. Enlargement of the spleen and possible cirrhosis. Boyd العراقي MD Procedures No procedures performed. Other Results Laboratory Tests Test 04/27/17 04/27/17 04/27/17 04/29/17 12:20 12:50 19:19 21:05 Prothrombin Time 13.5 SEC Prothromb Time International 1.2 RATIO Ratio Activated Partial 37.5 SEC Thromboplast Time Total Bilirubin 1.4 MG/DL Aspartate Amino Transf 20 U/L (AST/SGOT) Alanine Aminotransferase 14 U/L (ALT/SGPT) Alkaline Phosphatase 163 U/L Total Protein 5.5 GM/DL Albumin 2.3 GM/DL Urine Color YELLOW Urine Turbidity CLEAR Urine pH 5.5 Urine Specific [place] 1.017 Urine Protein TRACE mg/dL Urine Glucose (UA) NEG mg/dL Urine Ketones NEG mg/dL Urine Occult Blood NEG Urine Nitrite NEG Urine Bilirubin NEG Urine Urobilinogen LESS THAN 2.0 MG/DL Urine Leukocyte Esterase NEG Urine RBC LESS THAN 1 /hpf Urine WBC 1 /hpf Urine Squamous Epithelial <1 /hpf Cells Urine Hyaline Casts 4 /lpf Urine Mucus FEW /lpf Microscopic Urinalysis Comment CATH-CULT NOT IND Lactic Acid Level 1.3 mmol/L Vancomycin Level Trough 17.5 MCG/ML Test 04/30/17 05/01/17 13:24 08:15 White Blood Count 4.6 TH/MM3 Red Blood Count 3.46 MIL/MM3 Hemoglobin 9.5 GM/DL Hematocrit 29.3 % Mean Corpuscular Volume 84.6 FL Mean Corpuscular Hemoglobin 27.6 PG Mean Corpuscular Hemoglobin 32.6 % Concent Red Cell Distribution Width 16.2 % Platelet Count 204 TH/MM3 Mean Platelet Volume 8.3 FL Neutrophils (%) (Auto) 71.7 % Lymphocytes (%) (Auto) 15.1 % Monocytes (%) (Auto) 9.0 % Eosinophils (%) (Auto) 3.7 % Basophils (%) (Auto) 0.5 % Neutrophils # (Auto) 3.3 TH/MM3 Lymphocytes # (Auto) 0.7 TH/MM3 Monocytes # (Auto) 0.4 TH/MM3 Eosinophils # (Auto) 0.2 TH/MM3 Basophils # (Auto) 0.0 TH/MM3 CBC Comment DIFF FINAL Differential Comment Sodium Level 138 MEQ/L Potassium Level 4.8 MEQ/L Chloride Level 104 MEQ/L Carbon Dioxide Level 30.1 MEQ/L Anion Gap 4 MEQ/L Blood Urea Nitrogen 25 MG/DL Random Glucose 120 MG/DL Calcium Level 9.7 MG/DL Creatinine 1.50 MG/DL Estimat Glomerular Filtration 34 ML/MIN Rate Objective Remarks GENERAL: Obesity, oriented in person and place. SKIN: Warm and dry. The patient has erythema on the left lower extremity. She has a wound with a dressing in the left groin region. no drainage at this time HEAD: Atraumatic. Normocephalic. EYES: Pupils equal and round. No scleral icterus. No injection or drainage. ENT: No nasal bleeding or discharge. Mucous membranes pink and moist. NECK: Trachea midline. No JVD. CARDIOVASCULAR: Regular rate and rhythm. Systolic murmur appreciated. RESPIRATORY: No accessory muscle use. Clear to auscultation. Breath sounds equal bilaterally. GASTROINTESTINAL: Abdomen soft, non-tender, nondistended. Hepatic and splenic margins not palpable. MUSCULOSKELETAL: No obvious deformities. No clubbing. No cyanosis. No edema. NEUROLOGICAL: Awake and alert. No focal deficits. Medications and IVs Current Medications Medications (Trade) Dose Ordered Sig/Marbin Route Start Time Stop Time Status Last Admin (Xanax) 0.5 mg HS PO 04/27/17 21:00 04/30/17 21:31 (Eliquis) 2.5 mg BID PO 04/27/17 21:00 05/01/17 09:40 (Vitamin D3) 2,000 units DAILY PO 04/28/17 09:00 05/01/17 09:39 (Cymbalta Dr) 30 mg DAILY PO 04/28/17 09:00 05/01/17 09:40 (PROzac) 40 mg HS PO 04/27/17 21:00 04/30/17 21:31 (Lasix) 20 mg DAILY PO 04/28/17 09:00 05/01/17 09:40 (Robitussin Dm 200-20 Mg/10 ml Liq) 10 ml Q6HR PRN PO 04/27/17 15:30 ([place] 7.5-325 Mg) 1 tab Q4H PRN PO 04/27/17 15:30 04/30/17 21:31 (Xalatan 0.005% Opth Soln) 1 drop HS EACH EYE 04/27/17 21:00 04/30/17 21:00 (Synthroid) 112 mcg DAILY@0600 PO 04/28/17 06:00 05/01/17 06:38 (Lopressor) 25 mg Q12HR PO 04/27/17 21:00 04/30/17 21:31 (KCl) 10 meq DAILY PO 04/28/17 09:00 6/24/17 09:40 (Ferrous Sulfate) 325 mg TID PO 04/27/17 18:00 05/01/17 09:40 (Mag-Ox) 400 mg DAILY PO 04/28/17 09:00 05/01/17 09:40 (Theragran M Tab) 1 tab DAILY PO 04/28/17 09:00 05/01/17 09:40 Lactobacillus Acidophilus 1 tab 1 tab BID PO 04/27/17 21:00 05/01/17 09:39 (NS 1000 ml Inj) 1,000 ml @ 60 mls/hr [id number] IV 04/27/17 15:20 05/01/17 09:26 (NS Flush) 2 ml UNSCH PRN IV FLUSH 04/27/17 15:30 (NS Flush) 2 ml BID IV FLUSH 04/27/17 21:00 05/01/17 09:00 (Tylenol) 650 mg Q4H PRN PO 04/27/17 15:30 (Zofran Inj) 4 mg Q6H PRN IVP 04/27/17 15:30 (Narcan Inj) 0.4 mg UNSCH PRN IV 04/27/17 15:30 (Tiffanie-Colace) 1 tab BID PO 04/27/17 21:00 04/30/17 21:31 (Milk Of Magnesia Liq) 30 ml Q12H PRN PO 04/27/17 15:30 (Senokot) 17.2 mg Q12H PRN PO 04/27/17 15:30 (Dulcolax Supp) 10 mg DAILY PRN RECTAL 04/27/17 15:30 Lactulose 30 ml 30 ml DAILY PRN PO 04/27/17 15:30 (Vancomycin Consult Pharmacy) 0 ml @ 0 mls/hr UNSCH OTHER 04/27/17 15:30 (D50w (Vial) Inj) 25 ml UNSCH PRN IV PUSH 04/27/17 16:00 Glucagon 1 mg 1 mg UNSCH PRN OTHER 04/27/17 16:00 (Vancomycin Inj/ NS 500 ml Inj) 515 ml @ 250 mls/hr Q24H IV 04/27/17 21:00 04/30/17 21:00 (Mycostatin Liq) 5 ml QID SWISH-SWAL 04/28/17 18:00 05/01/17 09:39 A/P Assessment and Plan 1. SIRS probable secondary to Left leg cellulitis, not confirmed Pneumonia rule out this diagnosis, as per ID specialist Doctor Rabia she will need a PICC line placed to continue antibiotics in Rehab, with Diagnosis of Cellulitis of the left lower extremity, slowly resolving, MRSA infection on the left Hip still has MRSA, recommended to continue Vancomycin for seven days, avoid Zyvox due to thrombocytopenia, avoid Bactrim recommended to consult Nephrology specialist due to Chronic Kidney Disease. Discontinued Zosyn. as per Nephrology specialist her Creatinine at baseline follow with Nephrology as outpatient, not recommended for PICC line but recommended Julio cath IJ if feasible will discuss with Specials on Wednesday05/03/17. 2. Left Leg Cellulitis, continue wound care, Vancomycin for seven days more, MRSA positive. to continue Vancomycin for seven days. 3. Questionable facial droop CT grain negative for acute infarct, or hemorrhage 4. OA by History/Fibromyalgia 5. Anxiety disorder/Depression to continue Home medicines 6. PAF status post AICD and Medicines continue, at this time Pacemaker Interrogated she had fired her AICD 7. CAD/Hypertension/CHF stable no signs of Overload. 8. COPD on Bronchodilator, Mucolytic and incentive spirometry. 9. DM II continue sliding scale for now, Stable. 10. Obesity strongly recommended diet and exercise 11. Deconditioning, she is been in Rehab but not improving her Rehab has been terminated for May 03 and will be discharged but not improving, got PT eval and [employer] here 12. 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 Code Status Full Code. Appreciated Input and recommendations from Specialists. Case Discussed yesterday and today received the message by Doctor Quinn Camarillo appreciated assistance. [employer] for discharge to Rehab probable tomorrow Discharge Planning Expected for Wednesday after Julio cath placement if okay by Interventional Radiology Dariusz Ayala MD May 01, 2017 10:33
[2017-05-01] MEDS: ALPRAZolam 0.5 MG TAB PO SCH (20:59)
[2017-05-01] MEDS: FLUoxetine HCL 20 MG CAP PO SCH (20:59)
[2017-05-01] MEDS: VANCOMYCIN INJ 1,500 MG in SODIUM CHLORID 0.9% 500 ML INJ 500 ML IV SCH (21:00)
[2017-05-01] MEDS: LATANOPROST 0.005% OPHT SOLN 2.5 ML BTL EACH EYE SCH (21:03)
[2017-05-02] VITALS (9 sets, daily range): BP systolic 99–136; BP diastolic 50–82; PULSE 61–130; RESP 19–25; TEMP 97.5–98.8; O2SAT 95–100
[2017-05-02] MEDS: SODIUM CHLOR 0.9% 1000 ML INJ 1,000 ML IV SCH (03:38)
[2017-05-02] MEDS: LEVOTHYROXINE SODIUM 112 MCG TAB PO SCH (05:29)
[2017-05-02] MEDS: INSULIN NovoLIN REGULAR SUPPLEMENTAL SCALE SQ SCH ×4 (06:35→21:00)
[2017-05-02] MEDS: APIXABAN 2.5 MG TABLET PO SCH ×2 (08:27→22:47)
[2017-05-02] MEDS: MAGNESIUM OXIDE 400 MG TAB PO SCH (08:27)
[2017-05-02] MEDS: FUROSEMIDE 20 MG TAB PO SCH (08:27)
[2017-05-02] MEDS: POTASSIUM CHLORIDE 10 MEQ CAP PO SCH (08:27)
[2017-05-02] MEDS: FERROUS SULFATE 325 MG (65 MG ELEMENTAL IRON) TAB PO SCH ×3 (08:27→17:04)
[2017-05-02] MEDS: NYSTATIN SUSP 500,000 U/5 ML CUP SWISH-SWAL SCH ×4 (08:27→22:47)
[2017-05-02] MEDS: LACTOBACILLUS ACIDOPHILUS TAB PO SCH ×2 (08:27→22:47)
[2017-05-02] MEDS: DOCUSATE SODIUM 50 MG/SENNA 8.6 MG TAB PO SCH ×2 (08:28→22:47)
[2017-05-02] MEDS: METOPROLOL TARTRATE 25 MG TAB PO SCH ×2 (08:28→21:00)
[2017-05-02] MEDS: DULoxetine HCl DR 30 MG CAP PO SCH (08:28)
[2017-05-02] MEDS: MULTIVITAMINS/MINERALS THERAPEUTIC TAB PO SCH (08:28)
[2017-05-02] MEDS: CHOLECALCIFEROL (VIT D3) 1000 UNIT TAB PO SCH (08:28)
[2017-05-02] MEDS: SODIUM CHLORIDE 0.9% FLUSH 10 ML FLUSH IV FLUSH SCH ×2 (08:29→21:00)
--- NOTE | 2017-05-02 09:01 | HHI.PR ---
Subjective Remarks This is a 71-year-old female who presents via EMS for evaluation. She is currently a resident of [facility] rehabilitation. According to EMS report the patient was found with a questionable left-sided facial droop by her nurse this morning. EMS did not appreciate any facial droop or change from her baseline neurologic status. She did have a elevated temperature of 99.6 as well as complaints of left lower extremity redness and pain. Upon questioning the patient reports that her left leg is been hurting her for the past few weeks. She does have a temperature 100.6 here. She is also had a cough for 1 month. Denies abdominal pain, nausea or vomiting, headache. No other complaints. The family members arrived shortly after examination. They report that the patient has been having generalized weakness for the past week. She has also seemed more confused, forgetful. 04/30: Stable seen in her bedroom, discussed with ID specialist Doctor Rabia she will need a PICC line placed to continue antibiotics in Rehab, with Diagnosis of Cellulitis of the left lower extremity, slowly resolving, MRSA infection on the left Hip still has MRSA, recommended to continue Vancomycin for seven days, avoid Zyvox due to thrombocytopenia, avoid Bactrim recommended to consult Nephrology specialist due to Chronic Kidney Disease. 05/01: Seen in her bedroom in the presence of nurse Miss Dietz she will need to continue on Vancomycin, recommended by ID specialist for PICC line but not recommended by Nephrology specialist recommended Julio cath IJ, we will have Special procedures team on Wednesday meaning in two days more, I will discuss with Doctor Rabia if possible she will get the IJ and discharge to SNF. 05/02: Seen in her bedroom no complain, no nausea, vomit or diarrhea. asked for activity she states not able to walk and also do not want to be seated due to hip pain. Objective Vital Signs Date Time Temp Pulse Resp B/P Pulse Ox O2 Delivery O2 Flow Rate FiO2 05/02/17 08:19 Nasal Cannula 2.00 05/02/17 08:00 97.5 63 20 109/59 100 05/02/17 04:00 97.9 114 20 129/82 99 05/02/17 00:00 98.8 63 20 119/73 95 05/01/17 20:00 63 05/01/17 20:00 Nasal Cannula 2.00 05/01/17 20:00 98.5 63 20 119/48 100 05/01/17 16:07 100 Nasal Cannula 2.00 05/01/17 16:00 98.7 59 19 130/55 100 05/01/17 12:27 97.3 80 19 113/47 94 05/01/17 09:48 94 Nasal Cannula 2.00 05/01/17 09:46 59 115/57 I/O 05/01/17 05/01/17 05/01/17 05/02/17 05/02/17 05/02/17 07:00 15:00 23:00 07:00 15:00 23:00 Intake Total 480 ml 240 ml 891 ml Balance 480 ml 240 ml 891 ml Intake Oral 480 ml 240 ml IV Total 891 ml # Voids 4 4 2 2 # Bowel Movements 0 3 Result Diagram: 04/30/17 1324 05/01/17 0815 Imaging Last Impressions Lower Extremity Ultrasound 04/27/17 1213 Signed Impressions: Service Date/Time: Thursday, April 27, 2017 12:57 - CONCLUSION: 1. Suboptimal evaluation of the calf veins primarily due to body habitus and edema. 2. Otherwise, no sonographic evidence for left lower extremity DVT. Warren Rodriguez MD Chest X-Ray 04/27/17 1213 Signed Impressions: Service Date/Time: Thursday, April 27, 2017 12:18 - CONCLUSION: Chronic elevation right hemidiaphragm. Left basilar subsegmental atelectasis. Cardiomegaly. Andrew Glass MD Head CT 04/27/17 0000 Signed Impressions: Service Date/Time: Thursday, April 27, 2017 14:23 - CONCLUSION: 1. Cerebral atrophy and chronic ischemic small vessel vasculopathy. 2. No acute intracranial abnormality. Andrew Glass MD Chest CT 04/27/17 0000 Signed Impressions: Service Date/Time: Thursday, April 27, 2017 17:01 - CONCLUSION: 1. Advanced cardiomegaly. 2. Minimal left basilar effusion and likely area of rounded atelectasis. 3. Ascites within the upper abdomen. 4. Enlargement of the spleen and possible cirrhosis. Boyd العراقي MD Procedures No procedures performed. Other Results Laboratory Tests Test 04/29/17 04/30/1717 21:05 13:24 08:15 Vancomycin Level Trough 17.5 MCG/ML White Blood Count 4.6 TH/MM3 Red Blood Count 3.46 MIL/MM3 Hemoglobin 9.5 GM/DL Hematocrit 29.3 % Mean Corpuscular Volume 84.6 FL Mean Corpuscular Hemoglobin 27.6 PG Mean Corpuscular Hemoglobin 32.6 % Concent Red Cell Distribution Width 16.2 % Platelet Count 204 TH/MM3 Mean Platelet Volume 8.3 FL Neutrophils (%) (Auto) 71.7 % Lymphocytes (%) (Auto) 15.1 % Monocytes (%) (Auto) 9.0 % Eosinophils (%) (Auto) 3.7 % Basophils (%) (Auto) 0.5 % Neutrophils # (Auto) 3.3 TH/MM3 Lymphocytes # (Auto) 0.7 TH/MM3 Monocytes # (Auto) 0.4 TH/MM3 Eosinophils # (Auto) 0.2 TH/MM3 Basophils # (Auto) 0.0 TH/MM3 CBC Comment DIFF FINAL Differential Comment Sodium Level 138 MEQ/L Potassium Level 4.8 MEQ/L Chloride Level 104 MEQ/L Carbon Dioxide Level 30.1 MEQ/L Anion Gap 4 MEQ/L Blood Urea Nitrogen 25 MG/DL Random Glucose 120 MG/DL Calcium Level 9.7 MG/DL Creatinine 1.50 MG/DL Estimat Glomerular Filtration 34 ML/MIN Rate Objective Remarks GENERAL: Obesity, oriented in person and place. SKIN: Warm and dry. The patient has erythema on the left lower extremity. She has a wound with a dressing in the left groin region. HEAD: Atraumatic. Normocephalic. EYES: Pupils equal and round. No scleral icterus. No injection or drainage. ENT: No nasal bleeding or discharge. Mucous membranes pink and moist. NECK: Trachea midline. No JVD. CARDIOVASCULAR: Regular rate and rhythm. Systolic murmur appreciated. RESPIRATORY: No accessory muscle use. Clear to auscultation. Breath sounds equal bilaterally. GASTROINTESTINAL: Abdomen soft, non-tender, nondistended. Hepatic and splenic margins not palpable. MUSCULOSKELETAL: No obvious deformities. No clubbing. No cyanosis. No edema. NEUROLOGICAL: Awake and alert. No focal deficits. Medications and IVs Current Medications Medications (Trade) Dose Ordered Sig/Marbin Route Start Time Stop Time Status Last Admin (Xanax) 0.5 mg HS PO 04/27/17 21:00 05/01/17 20:59 (Eliquis) 2.5 mg BID PO 04/27/17 21:00 05/02/17 08:27 (Vitamin D3) 2,000 units DAILY PO 04/28/17 09:00 05/02/17 08:28 (Cymbalta Dr) 30 mg DAILY PO 04/28/17 09:00 05/02/17 08:28 (PROzac) 40 mg HS PO 04/27/17 21:00 05/01/17 20:59 (Lasix) 20 mg DAILY PO 04/28/17 09:00 05/02/17 08:27 (Robitussin Dm 200-20 Mg/10 ml Liq) 10 ml Q6HR PRN PO 04/27/17 15:30 ([place] 7.5-325 Mg) 1 tab Q4H PRN PO 04/27/17 15:30 04/30/17 21:31 (Xalatan 0.005% Opth Soln) 1 drop HS EACH EYE 04/27/17 21:00 05/01/17 21:03 (Synthroid) 112 mcg DAILY@0600 PO 04/28/17 06:00 05/02/17 05:29 (Lopressor) 25 mg Q12HR PO 04/27/17 21:00 05/01/17 20:59 (KCl) 10 meq DAILY PO 04/28/17 09:00 05/02/17 08:27 (Ferrous Sulfate) 325 mg TID PO 04/27/17 18:00 05/02/17 08:27 (Mag-Ox) 400 mg DAILY PO 04/28/17 09:00 05/02/17 08:27 (Theragran M Tab) 1 tab DAILY PO 04/28/17 09:00 05/02/17 08:28 Lactobacillus Acidophilus 1 tab 1 tab BID PO 04/27/17 21:00 05/02/17 08:27 (NS 1000 ml Inj) 1,000 ml @ 60 mls/hr [id number] IV 04/27/17 15:20 05/02/17 03:38 (NS Flush) 2 ml UNSCH PRN IV FLUSH 04/27/17 15:30 (NS Flush) 2 ml BID IV FLUSH 04/27/17 21:00 05/01/17 21:00 (Tylenol) 650 mg Q4H PRN PO 04/27/17 15:30 (Zofran Inj) 4 mg Q6H PRN IVP 04/27/17 15:30 (Narcan Inj) 0.4 mg UNSCH PRN IV 04/27/17 15:30 (Tiffanie-Colace) 1 tab BID PO 04/27/17 21:00 04/30/17 21:31 (Milk Of Magnesia Liq) 30 ml Q12H PRN PO 04/27/17 15:30 (Senokot) 17.2 mg Q12H PRN PO 04/27/17 15:30 (Dulcolax Supp) 10 mg DAILY PRN RECTAL 04/27/17 15:30 Lactulose 30 ml 30 ml DAILY PRN PO 04/27/17 15:30 (Vancomycin Consult Pharmacy) 0 ml @ 0 mls/hr UNSCH OTHER 04/27/17 15:30 (D50w (Vial) Inj) 25 ml UNSCH PRN IV PUSH 04/27/17 16:00 Glucagon 1 mg 1 mg UNSCH PRN OTHER 04/27/17 16:00 (Vancomycin Inj/ NS 500 ml Inj) 515 ml @ 250 mls/hr Q24H IV 04/27/17 21:00 05/01/17 21:00 (Mycostatin Liq) 5 ml QID SWISH-SWAL 04/28/17 18:00 05/02/17 08:27 A/P Assessment and Plan 1. SIRS probable secondary to Left leg cellulitis, not confirmed Pneumonia rule out this diagnosis, as per ID specialist Doctor Rabia she will need a PICC line placed to continue antibiotics in Rehab, with Diagnosis of Cellulitis of the left lower extremity, slowly resolving, MRSA infection on the left Hip still has MRSA, recommended to continue Vancomycin for seven days, avoid Zyvox due to thrombocytopenia, avoid Bactrim recommended to consult Nephrology specialist due to Chronic Kidney Disease. Discontinued Zosyn. as per Nephrology specialist her Creatinine at baseline follow with Nephrology as outpatient, not recommended for PICC line but recommended Julio cath IJ if feasible will discuss with Specials on Wednesday05/03/17. 2. Left Leg Cellulitis, continue wound care, Vancomycin for seven days more, MRSA positive. to continue Vancomycin for seven days. 3. Questionable facial droop CT grain negative for acute infarct, or hemorrhage 4. OA by History/Fibromyalgia 5. Anxiety disorder/Depression to continue Home medicines 6. PAF status post AICD and Medicines continue, at this time Pacemaker Interrogated she had fired her AICD 7. CAD/Hypertension/CHF stable no signs of Overload. discontinued IV fluids to avoid overload. 8. COPD on Bronchodilator, Mucolytic and incentive spirometry. 9. DM II continue sliding scale for now, Stable. 10. Obesity strongly recommended diet and exercise 11. Deconditioning, she is been in Rehab but not improving her Rehab has been terminated for May 03 and will be discharged but not improving, got PT eval and Explosive Technician here, the patient does not want to be in sitting position. avoids activity. 12. 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 Code Status Full Code. Appreciated Input and recommendations from Specialists. Discharge Planning Expected for Wednesday after Julio cath placement if okay by Interventional Radiology Dariusz Ayala MD May 02, 2017 09:01 Dariusz Ayala MD May 02, 2017 09:01
[2017-05-02] MEDS: ACETAMINOPHEN/HYDROcodone 325 MG/7.5 MG TAB PO PRN (17:04)
[2017-05-02] MEDS ORDERED: PHARMACY ORDERED LAB ONE (20:45)
[2017-05-02] MEDS: FLUoxetine HCL 20 MG CAP PO SCH (22:46)
[2017-05-02] MEDS: ALPRAZolam 0.5 MG TAB PO SCH (22:47)
[2017-05-02] MEDS: LATANOPROST 0.005% OPHT SOLN 2.5 ML BTL EACH EYE SCH (22:48)
[2017-05-03] VITALS (7 sets, daily range): BP systolic 94–123; BP diastolic 44–57; PULSE 64–76; RESP 18–20; TEMP 98.5–99.4; O2SAT 93–99
[2017-05-03] MEDS: LEVOTHYROXINE SODIUM 112 MCG TAB PO SCH (05:56)
[2017-05-03] MEDS: INSULIN NovoLIN REGULAR SUPPLEMENTAL SCALE SQ SCH ×3 (05:59→16:00)
[2017-05-03] MEDS: APIXABAN 2.5 MG TABLET PO SCH (09:00)
[2017-05-03] MEDS: METOPROLOL TARTRATE 25 MG TAB PO SCH ×2 (09:00→09:14)
[2017-05-03] MEDS: FUROSEMIDE 20 MG TAB PO SCH ×2 (09:00→09:14)
[2017-05-03] MEDS: MULTIVITAMINS/MINERALS THERAPEUTIC TAB PO SCH (09:13)
[2017-05-03] MEDS: DOCUSATE SODIUM 50 MG/SENNA 8.6 MG TAB PO SCH (09:13)
[2017-05-03] MEDS: DULoxetine HCl DR 30 MG CAP PO SCH (09:13)
[2017-05-03] MEDS: NYSTATIN SUSP 500,000 U/5 ML CUP SWISH-SWAL SCH ×3 (09:13→16:21)
[2017-05-03] MEDS: FERROUS SULFATE 325 MG (65 MG ELEMENTAL IRON) TAB PO SCH ×3 (09:13→16:21)
[2017-05-03] MEDS: SODIUM CHLORIDE 0.9% FLUSH 10 ML FLUSH IV FLUSH SCH (09:14)
[2017-05-03] MEDS: MAGNESIUM OXIDE 400 MG TAB PO SCH (09:14)
[2017-05-03] MEDS: LACTOBACILLUS ACIDOPHILUS TAB PO SCH (09:14)
[2017-05-03] MEDS: POTASSIUM CHLORIDE 10 MEQ CAP PO SCH (09:14)
[2017-05-03] MEDS: CHOLECALCIFEROL (VIT D3) 1000 UNIT TAB PO SCH (09:14)
--- NOTE | 2017-05-03 09:20 | HHI.PR ---
Subjective Remarks This is a 71-year-old female who presents via EMS for evaluation. She is currently a resident of [facility] rehabilitation. According to EMS report the patient was found with a questionable left-sided facial droop by her nurse this morning. EMS did not appreciate any facial droop or change from her baseline neurologic status. She did have a elevated temperature of 99.6 as well as complaints of left lower extremity redness and pain. Upon questioning the patient reports that her left leg is been hurting her for the past few weeks. She does have a temperature 100.6 here. She is also had a cough for 1 month. Denies abdominal pain, nausea or vomiting, headache. No other complaints. The family members arrived shortly after examination. They report that the patient has been having generalized weakness for the past week. She has also seemed more confused, forgetful. 04/30: Stable seen in her bedroom, discussed with ID specialist Doctor Rabia she will need a PICC line placed to continue antibiotics in Rehab, with Diagnosis of Cellulitis of the left lower extremity, slowly resolving, MRSA infection on the left Hip still has MRSA, recommended to continue Vancomycin for seven days, avoid Zyvox due to thrombocytopenia, avoid Bactrim recommended to consult Nephrology specialist due to Chronic Kidney Disease. 05/01: Seen in her bedroom in the presence of nurse Miss Dietz she will need to continue on Vancomycin, recommended by ID specialist for PICC line but not recommended by Nephrology specialist recommended Julio cath IJ, we will have Special procedures team on Wednesday meaning in two days more, I will discuss with Doctor Rabia if possible she will get the IJ and discharge to SNF. 05/02: Seen in her bedroom no complain, no nausea, vomit or diarrhea. asked for activity she states not able to walk and also do not want to be seated due to hip pain. 05/03: Stable in her bedroom, discussed with her Son Mr. Gerson Rodriguez and with ID specialist Doctor Rabia, recommended to continue Zyvox until 05/06/17, do not take Cymbalta and Fluoxetine while on Zyvox and may discharge to SNF from ID specialist standpoint, at this time no complaint, was not able to work with Physical Therapy, If she continue to refuse working with PT will be bedbound her rehab facility was discharging her due to this issue, no nausea, vomit or diarrhea. Objective Vital Signs Date Time Temp Pulse Resp B/P Pulse Ox O2 Delivery O2 Flow Rate FiO2 05/03/17 08:00 98.5 76 18 97/50 95 05/03/17 05:26 98.8 71 20 104/51 94 05/03/17 01:15 98.8 69 20 123/57 93 05/02/17 23:00 67 05/02/17 21:33 98.1 66 19 99/63 97 05/02/17 20:45 Room Air 05/02/17 18:16 99 Nasal Cannula 2.00 05/02/17 18:04 17 05/02/17 16:00 98.4 61 20 118/50 99 05/02/17 11:57 98.7 130 25 136/59 98 05/02/17 11:06 96 Nasal Cannula 2.00 I/O 05/02/17 05/02/17 05/02/17 05/03/17 05/03/17 05/03/17 07:00 15:00 23:00 07:00 15:00 23:00 Intake Total 891 ml 293 ml Balance 891 ml 293 ml IV Total 891 ml 293 ml # Voids 2 1 # Bowel Movements 1 Result Diagram: 04/30/17 1324 05/01/17 0815 Imaging Last Impressions Lower Extremity Ultrasound 04/27/173 Signed Impressions: Service Date/Time: Thursday, April 27, 2017 12:57 - CONCLUSION: 1. Suboptimal evaluation of the calf veins primarily due to body habitus and edema. 2. Otherwise, no sonographic evidence for left lower extremity DVT. Warren Rodriguez MD Chest X-Ray 04/27/17 1213 Signed Impressions: Service Date/Time: Thursday, April 27, 2017 12:18 - CONCLUSION: Chronic elevation right hemidiaphragm. Left basilar subsegmental atelectasis. Cardiomegaly. Andrew Glass MD Head CT 04/27/17 0000 Signed Impressions: Service Date/Time: Thursday, April 27, 2017 14:23 - CONCLUSION: 1. Cerebral atrophy and chronic ischemic small vessel vasculopathy. 2. No acute intracranial abnormality. Andrew Glass MD Chest CT 04/27/17 0000 Signed Impressions: Service Date/Time: Thursday, April 27, 2017 17:01 - CONCLUSION: 1. Advanced cardiomegaly. 2. Minimal left basilar effusion and likely area of rounded atelectasis. 3. Ascites within the upper abdomen. 4. Enlargement of the spleen and possible cirrhosis. Boyd العراقي MD Procedures No procedures performed. Other Results Laboratory Tests Test 04/30/17 05/01/17 05/02/17 13:24 08:15 20:20 White Blood Count 4.6 TH/MM3 Red Blood Count 3.46 MIL/MM3 Hemoglobin 9.5 GM/DL Hematocrit 29.3 % Mean Corpuscular Volume 84.6 FL Mean Corpuscular Hemoglobin 27.6 PG Mean Corpuscular Hemoglobin 32.6 % Concent Red Cell Distribution Width 16.2 % Platelet Count 204 TH/MM3 Mean Platelet Volume 8.3 FL Neutrophils (%) (Auto) 71.7 % Lymphocytes (%) (Auto) 15.1 % Monocytes (%) (Auto) 9.0 % Eosinophils (%) (Auto) 3.7 % Basophils (%) (Auto) 0.5 % Neutrophils # (Auto) 3.3 TH/MM3 Lymphocytes # (Auto) 0.7 TH/MM3 Monocytes # (Auto) 0.4 TH/MM3 Eosinophils # (Auto) 0.2 TH/MM3 Basophils # (Auto) 0.0 TH/MM3 CBC Comment DIFF FINAL Differential Comment Sodium Level 138 MEQ/L Potassium Level 4.8 MEQ/L Chloride Level 104 MEQ/L Carbon Dioxide Level 30.1 MEQ/L Anion Gap 4 MEQ/L Blood Urea Nitrogen 25 MG/DL Random Glucose 120 MG/DL Calcium Level 9.7 MG/DL Creatinine 1.50 MG/DL Estimat Glomerular Filtration 34 ML/MIN Rate Vancomycin Level Trough 35.2 MCG/ML Objective Remarks GENERAL: Obesity, oriented in person and place. SKIN: Warm and dry. The patient has erythema on the left lower extremity. She has a wound with a dressing in the left groin region. HEAD: Atraumatic. Normocephalic. EYES: Pupils equal and round. No scleral icterus. No injection or drainage. ENT: No nasal bleeding or discharge. Mucous membranes pink and moist. NECK: Trachea midline. No JVD. CARDIOVASCULAR: Regular rate and rhythm. Systolic murmur appreciated. RESPIRATORY: No accessory muscle use. Clear to auscultation. Breath sounds equal bilaterally. GASTROINTESTINAL: Abdomen soft, non-tender, nondistended. Hepatic and splenic margins not palpable. MUSCULOSKELETAL: No obvious deformities. No clubbing. No cyanosis. No edema. NEUROLOGICAL: Awake and alert. No focal deficits. Medications and IVs Current Medications Medications (Trade) Dose Ordered Sig/Marbin Route Start Time Stop Time Status Last Admin (Xanax) 0.5 mg HS PO 04/27/17 21:00 05/02/17 22:47 (Eliquis) 2.5 mg BID PO 04/27/17 21:00 05/02/17 22:47 (Vitamin D3) 2,000 units DAILY PO 04/28/17 09:00 05/03/17 09:14 (Cymbalta Dr) 30 mg DAILY PO 04/28/17 09:00 05/03/17 09:13 (PROzac) 40 mg HS PO 04/27/17 21:00 05/02/17 22:46 (Lasix) 20 mg DAILY PO 04/28/17 09:00 05/03/17 09:14 (Robitussin Dm 200-20 Mg/10 ml Liq) 10 ml Q6HR PRN PO 04/27/17 15:30 (Half Way 7.5-325 Mg) 1 tab Q4H PRN PO 04/27/17 15:30 05/02/17 17:04 (Xalatan 0.005% Opth Soln) 1 drop HS EACH EYE 04/27/17 21:00 05/02/17 22:48 (Synthroid) 112 mcg DAILY@0600 PO 04/28/17 06:00 05/03/17 05:56 (Lopressor) 25 mg Q12HR PO 04/27/17 21:00 05/03/17 09:14 (KCl) 10 meq DAILY PO 04/28/17 09:00 05/03/17 09:14 (Ferrous Sulfate) 325 mg TID PO 04/27/17 18:00 05/03/17 09:13 (Mag-Ox) 400 mg DAILY PO 04/28/17 09:00 05/03/17 09:14 (Theragran M Tab) 1 tab DAILY PO 04/28/17 09:00 05/03/17 09:13 (Lactinex) 1 tab BID PO 04/27/17 21:00 05/03/17 09:14 (NS Flush) 2 ml UNSCH PRN IV FLUSH 04/27/17 15:30 (NS Flush) 2 ml BID IV FLUSH 04/27/17 21:00 05/03/17 09:14 (Tylenol) 650 mg Q4H PRN PO 04/27/17 15:30 (Zofran Inj) 4 mg Q6H PRN IVP 04/27/17 15:30 (Narcan Inj) 0.4 mg UNSCH PRN IV 04/27/17 15:30 (Tiffanie-Colace) 1 tab BID PO 04/27/17 21:00 05/03/17 09:13 (Milk Of Magnesia Liq) 30 ml Q12H PRN PO 04/27/17 15:30 (Senokot) 17.2 mg Q12H PRN PO 04/27/17 15:30 (Dulcolax Supp) 10 mg DAILY PRN RECTAL 04/27/17 15:30 Lactulose 30 ml 30 ml DAILY PRN PO 04/27/17 15:30 (Vancomycin Consult Pharmacy) 0 ml @ 0 mls/hr UNSCH OTHER 04/27/17 15:30 (D50w (Vial) Inj) 25 ml UNSCH PRN IV PUSH 04/27/17 16:00 (Glucagon Inj) 1 mg UNSCH PRN OTHER 04/27/17 16:00 (Mycostatin Liq) 5 ml QID SWISH-SWAL 04/28/17 18:00 05/03/17 09:13 A/P Assessment and Plan 1. SIRS probable secondary to Left leg cellulitis, not confirmed Pneumonia rule out this diagnosis, as per ID specialist Doctor Rabia she will need a PICC line placed to continue antibiotics in Rehab, with Diagnosis of Cellulitis of the left lower extremity, slowly resolving, MRSA infection on the left Hip still has MRSA, recommended to continue Vancomycin for seven days, avoid Zyvox due to thrombocytopenia, avoid Bactrim recommended to consult Nephrology specialist due to Chronic Kidney Disease. Discontinued Zosyn. as per Nephrology specialist her Creatinine at baseline follow with Nephrology as outpatient, stable from ID specialist standpoint okay to discharge on Zyvox and avoid Cymbalta or Fluoxetine while on Zyvox continue until 05/06/17 2. Left Leg Cellulitis, continue wound care, Vancomycin for seven days more, MRSA positive. at this time okay to continue Zyvox for four more days 3. Questionable facial droop CT grain negative for acute infarct, or hemorrhage 4. OA by History/Fibromyalgia 5. Anxiety disorder/Depression Cymbalta and Fluoxetine on Hold until 05/06/17. re start on 05/07/17 6. PAF status post AICD and Medicines continue, at this time Pacemaker Interrogated she had fired her AICD 7. CAD/Hypertension/CHF stable no signs of Overload. discontinued IV fluids to avoid overload. 8. COPD on Bronchodilator, Mucolytic and incentive spirometry. 9. DM II continue sliding scale for now, Stable. 10. Obesity strongly recommended diet and exercise 11. Deconditioning, she is been in Rehab but not improving her Rehab has been terminated for May 03 and will be discharged but not improving, got PT eval and Wallpaperer Helper here, the patient does not want to be in sitting position. avoids activity. 12. 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 Gerson Rodriguez all questions answered to the best of my abilities. Discussed with Doctor Quinn Camarillo Appreciated input and recommendations. Code Status Full Code. Discharge Planning Discharge to SNF now. Dariusz Ayala MD May 03, 2017 09:20
[2017-05-03] MEDS ORDERED: ZYVO600T PO (12:32)
--- NOTE | 2017-05-03 12:41 | HHI.IDPN ---
Note Infectious Disease Note Patient feels okay. Afebrile. Says her breathing is okay. Awaiting central line to be placed. Presented to emergency department with fever and left lower extremity pain. The patient was in the hospital after she sustained fracture of the left hip and she had a partial hip replacement and then she fell again and reinjured the leg in January. She had to have additional surgery and then she developed MRSA infection in the left hip and required a wound Vac and she was treated with IV antibiotics up until about a month ago. PAST MEDICAL HISTORY Fibromyalgia, depression, hypertension, diabetes mellitus type 2, COPD, CHF, coronary artery disease, osteoarthritis, history of AICD placement for paroxysmal atrial fibrillation, appendectomy, cholecystectomy. ALLERGIES NO KNOWN DRUG ALLERGIES. ANTIBIOTICS Vancomycin. OBJECTIVE: Vital Signs Date Time Temp Pulse Resp B/P Pulse Ox O2 Delivery O2 Flow Rate FiO2 05/03/17 09:43 Room Air 05/03/17 08:00 98.5 76 18 97/50 95 05/03/17 07:00 74 05/03/17 05:26 98.8 71 20 104/51 94 05/03/17 01:15 98.8 69 20 123/57 93 05/02/17 23:00 67 05/02/17 21:33 98.1 66 19 99/63 97 05/02/17 20:45 Room Air 05/02/17 18:16 99 Nasal Cannula 2.00 05/02/17 18:04 17 05/02/17 16:00 98.4 61 20 118/50 99 05/02/17 05/02/17 05/03/17 15:00 23:00 07:00 Intake Total 293 ml Balance 293 ml IV Total 293 ml # Voids 1 # Bowel Movements 1 Laboratory Tests Test 05/03/17 10:21 Creatinine 1.45 MG/DL Estimat Glomerular Filtration 35 ML/MIN Rate IMAGING: Lower Extremity Ultrasound 04/27/17 1213 Signed Impressions: Service Date/Time: Thursday, April 27, 2017 12:57 - CONCLUSION: 1. Suboptimal evaluation of the calf veins primarily due to body habitus and edema. 2. Otherwise, no sonographic evidence for left lower extremity DVT. Warren Rodriguez MD Chest X-Ray 04/27/17 1213 Signed Impressions: Service Date/Time: Thursday, April 27, 2017 12:18 - CONCLUSION: Chronic elevation right hemidiaphragm. Left basilar subsegmental atelectasis. Cardiomegaly. Andrew Glass MD Head CT 04/27/17 0000 Signed Impressions: Service Date/Time: Thursday, April 27, 2017 14:23 - CONCLUSION: 1. Cerebral atrophy and chronic ischemic small vessel vasculopathy. 2. No acute intracranial abnormality. Andrew Glass MD Chest CT 04/27/17 0000 Signed Impressions: Service Date/Time: Thursday, April 27, 2017 17:01 - CONCLUSION: 1. Advanced cardiomegaly. 2. Minimal left basilar effusion and likely area of rounded atelectasis. 3. Ascites within the upper abdomen. 4. Enlargement of the spleen and possible cirrhosis. Boyd العراقي MD PHYSICAL EXAMINATION GENERAL: No acute distress. HEENT: Extraocular grossly intact, pupils reactive to light without icterus. Oropharynx, no visible lesions. Neck: Supple without adenopathy. Lungs: Clear breath sounds. Heart: Regular S1-S2. Extremities: The left hip has a dressing in place over the area of prior wound Vac. No erythema is around at the wound which is superficially ulcerated ~ 2cm x 3cm. The left tibia erythema fading. The left inner to posterior distal thigh erythema is improved. Edema still present. Neuro: Nonfocal. Skin: No rash. Psych: Calm and cooperative. IMPRESSION 1. Cellulitis of the left lower extremity. slowly resolving. 2. Recent MRSA infection left hip. Culture still has MRSA. 2. Chronic kidney disease. RECOMMENDATIONS Due to improvement in the erythema I think she can be switched to PO Zyvox for the remaining few days of therapy. Prescription written for PO Zyvox until 05/06/17. D/C Vancomycin. Hold Cymbalta and Prozac both serotonin uptake inhibitors while on Zyvox. Discussed with case management and son. Quinn Camarillo MD May 03, 2017 12:41
[2017-05-03] MEDS ORDERED: DULO1CAP2 PO (13:08)
[2017-05-03] MEDS ORDERED: METO25TA3 PO (13:08)
[2017-05-03] MEDS ORDERED: FLUO40CA PO (13:08)
--- NOTE | 2017-05-03 13:23 | HHI.DS ---
Discharge Summary Admission Date Apr 27, 2017 at 15:21 Discharge Date: May 03, 2017 Admitting Diagnosis LLE CELLULITIS (1) Cellulitis of left lower extremity ICD Code: L03.116 Diagnosis: Principal Procedures None Brief History - From Admission This is a 71-year-old female who presents via EMS for evaluation. She is currently a resident of [facility] rehabilitation. According to EMS report the patient was found with a questionable left-sided facial droop by her nurse this morning. EMS did not appreciate any facial droop or change from her baseline neurologic status. She did have a elevated temperature of 99.6 as well as complaints of left lower extremity redness and pain. Upon questioning the patient reports that her left leg is been hurting her for the past few weeks. She does have a temperature 100.6 here. She is also had a cough for 1 month. Denies abdominal pain, nausea or vomiting, headache. No other complaints. The family members arrived shortly after examination. They report that the patient has been having generalized weakness for the past week. She has also seemed more confused, forgetful over the past several days as well. Seen in her bedroom in Emergency Room in the presence of pacemaker earth science laboratory technician she had one episode of firing some days ago, seen in the presence of her Son Mr. Gerson Rodriguez and her Daughter Mrs. Jeri Lima, they were called in am for change in status, from her [facility], she is improving her Altered Mental status, has continuous drainage from anterior groin area status post Left total hip hemiarthroplasty and then again had new fracture new procedure performed she has been followed by her Primary verifying specialist Doctor Jordy who suspected acute Pneumonia and wanted to confirm with new study not clear on the chest X ray taken here but the patient has her mouth with Purulent tissue in and as per relative cough. CBC/BMP: 04/30/17 1324 05/03/17 1021 Significant Findings Laboratory Tests Test 04/30/17 05/01/17 05/02/17 05/03/17 13:24 08:15 20:20 10:21 Red Blood Count 3.46 MIL/MM3 (4.00-5.30) Hemoglobin 9.5 GM/DL (11.6-15.3) Hematocrit 29.3 % (35.0-46.0) Neutrophils (%) (Auto) 71.7 % (16.0-70.0) Monocytes (%) (Auto) 9.0 % (0.0-8.0) Lymphocytes # (Auto) 0.7 TH/MM3 (1.0-4.8) Anion Gap 4 MEQ/L (5-15) Blood Urea Nitrogen 25 MG/DL (7-18) Creatinine 1.57 MG/DL 1.50 MG/DL 1.45 MG/DL (0.50-1.00) (0.50-1.00) (0.50-1.00) Estimat Glomerular Filtration 32 ML/MIN (>89) 34 ML/MIN (>89) 35 ML/MIN (>89) Rate Random Glucose 120 MG/DL (74-106) Vancomycin Level Trough 35.2 MCG/ML (5.0-10.0) Imaging Last Impressions Lower Extremity Ultrasound 04/27/173 Signed Impressions: Service Date/Time: Thursday, April 27, 2017 12:57 - CONCLUSION: 1. Suboptimal evaluation of the calf veins primarily due to body habitus and edema. 2. Otherwise, no sonographic evidence for left lower extremity DVT. Warren Rodriguez MD Chest X-Ray 04/27/173 Signed Impressions: Service Date/Time: Thursday, April 27, 2017 12:18 - CONCLUSION: Chronic elevation right hemidiaphragm. Left basilar subsegmental atelectasis. Cardiomegaly. Andrew Glass MD Head CT 04/27/17 0000 Signed Impressions: Service Date/Time: Thursday, April 27, 2017 14:23 - CONCLUSION: 1. Cerebral atrophy and chronic ischemic small vessel vasculopathy. 2. No acute intracranial abnormality. Andrew Glass MD Chest CT 04/27/17 0000 Signed Impressions: Service Date/Time: Thursday, April 27, 2017 17:01 - CONCLUSION: 1. Advanced cardiomegaly. 2. Minimal left basilar effusion and likely area of rounded atelectasis. 3. Ascites within the upper abdomen. 4. Enlargement of the spleen and possible cirrhosis. Boyd العراقي MD PE at Discharge GENERAL: Obesity, oriented in person and place. SKIN: Warm and dry. The patient has erythema on the left lower extremity. She has a wound with a dressing in the left groin region. HEAD: Atraumatic. Normocephalic. EYES: Pupils equal and round. No scleral icterus. No injection or drainage. ENT: No nasal bleeding or discharge. Mucous membranes pink and moist. NECK: Trachea midline. No JVD. CARDIOVASCULAR: Regular rate and rhythm. Systolic murmur appreciated. RESPIRATORY: No accessory muscle use. Clear to auscultation. Breath sounds equal bilaterally. GASTROINTESTINAL: Abdomen soft, non-tender, nondistended. Hepatic and splenic margins not palpable. MUSCULOSKELETAL: No obvious deformities. No clubbing. No cyanosis. No edema. NEUROLOGICAL: Awake and alert. No focal deficits. Hospital Course This is a 71-year-old female who presents via EMS for evaluation. She is currently a resident of [facility] rehabilitation. According to EMS report the patient was found with a questionable left-sided facial droop by her nurse this morning. EMS did not appreciate any facial droop or change from her baseline neurologic status. She did have a elevated temperature of 99.6 as well as complaints of left lower extremity redness and pain. Upon questioning the patient reports that her left leg is been hurting her for the past few weeks. She does have a temperature 100.6 here. She is also had a cough for 1 month. Denies abdominal pain, nausea or vomiting, headache. No other complaints. The family members arrived shortly after examination. They report that the patient has been having generalized weakness for the past week. She has also seemed more confused, forgetful. 04/30: Stable seen in her bedroom, discussed with ID specialist Doctor Rabia she will need a PICC line placed to continue antibiotics in Rehab, with Diagnosis of Cellulitis of the left lower extremity, slowly resolving, MRSA infection on the left Hip still has MRSA, recommended to continue Vancomycin for seven days, avoid Zyvox due to thrombocytopenia, avoid Bactrim recommended to consult Nephrology specialist due to Chronic Kidney Disease. 05/01: Seen in her bedroom in the presence of nurse Miss Dietz she will need to continue on Vancomycin, recommended by ID specialist for PICC line but not recommended by Nephrology specialist recommended Julio cath IJ, we will have Special procedures team on Wednesday meaning in two days more, I will discuss with Doctor Rabia if possible she will get the IJ and discharge to SNF. 05/02: Seen in her bedroom no complain, no nausea, vomit or diarrhea. asked for activity she states not able to walk and also do not want to be seated due to hip pain. 05/03: Stable in her bedroom, discussed with her Son Mr. Gerson Rodriguez and with ID specialist Doctor Rabia, recommended to continue Zyvox until 05/06/17, do not take Cymbalta and Fluoxetine while on Zyvox and may discharge to SNF from ID specialist standpoint, at this time no complaint, was not able to work with Physical Therapy, If she continue to refuse working with PT will be bedbound her rehab facility was discharging her due to this issue, no nausea, vomit or diarrhea. Assessment and Plan 1. SIRS probable secondary to Left leg cellulitis, not confirmed Pneumonia rule out this diagnosis, as per ID specialist Doctor Rabia she will need a PICC line placed to continue antibiotics in Rehab, with Diagnosis of Cellulitis of the left lower extremity, slowly resolving, MRSA infection on the left Hip still has MRSA, recommended to continue Vancomycin for seven days, avoid Zyvox due to thrombocytopenia, avoid Bactrim recommended to consult Nephrology specialist due to Chronic Kidney Disease. Discontinued Zosyn. as per Nephrology specialist her Creatinine at baseline follow with Nephrology as outpatient, stable from ID specialist standpoint okay to discharge on Zyvox and avoid Cymbalta or Fluoxetine while on Zyvox continue until 05/06/17 2. Left Leg Cellulitis, continue wound care, Vancomycin for seven days more, MRSA positive. at this time okay to continue Zyvox for four more days 3. Questionable facial droop CT grain negative for acute infarct, or hemorrhage 4. OA by History/Fibromyalgia 5. Anxiety disorder/Depression Cymbalta and Fluoxetine on Hold until 05/06/17. re start on 05/07/17 6. PAF status post AICD and Medicines continue, at this time Pacemaker Interrogated she had fired her AICD 7. CAD/Hypertension/CHF stable no signs of Overload. discontinued IV fluids to avoid overload. 8. COPD on Bronchodilator, Mucolytic and incentive spirometry. 9. DM II continue sliding scale for now, Stable. 10. Obesity strongly recommended diet and exercise 11. Deconditioning, she is been in Rehab but not improving her Rehab has been terminated for May 03 and will be discharged but not improving, got PT lauro and Ladder Operator here, the patient does not want to be in sitting position. avoids activity. 12. 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 Gerson Rodriguez all questions answered to the best of my abilities. Discussed with Doctor Quinn Camarillo Appreciated input and recommendations. Code Status Full Code. Discharge Planning Discharge to SNF now. Pt Condition on Discharge: Good Discharge Disposition: Discharge to SNF Discharge Time: > 30 minutes Discharge Instructions DIET: Follow Instructions for: Heart Healthy Diet, Diabetic Diet Activities you can perform: See Additionl Instruction Other Activity Instructions: Continue Rehabilitation with PT and OT. Dariusz Ayala MD May 03, 2017 13:23
[2017-05-03] MEDS ORDERED: METOPROLOL TARTRATE 25 MG TAB PO SCH (21:00)
[2017-05-03] MEDS ORDERED: LINEZOLID 600 MG TAB PO SCH (21:00)
== END 2017-05-03 18:14 | DRG 603 ==
LOC: NEPE 11:43 → NEDA 15:21 → N05B 18:00
PROVIDERS: ADMIT Internal Medicine; ATTEND Internal Medicine
DX: L03.116 Cellulitis of left lower limb (principal); N18.4 Chronic kidney disease, stage 4 (severe); I13.0 Hypertensive heart and chronic kidney disease with heart failure and stage 1 through stage 4 chronic kidney disease, or unspecified chronic kidney disease; I50.9 Heart failure, unspecified; E11.21 Type 2 diabetes mellitus with diabetic nephropathy; E11.22 Type 2 diabetes mellitus with diabetic chronic kidney disease; J44.9 Chronic obstructive pulmonary disease, unspecified; F32.9 Major depressive disorder, single episode, unspecified; F41.9 Anxiety disorder, unspecified; M19.90 Unspecified osteoarthritis, unspecified site; M79.7 Fibromyalgia; I25.10 Atherosclerotic heart disease of native coronary artery without angina pectoris; B95.62 Methicillin resistant Staphylococcus aureus infection as the cause of diseases classified elsewhere; E66.9 Obesity, unspecified; G47.33 Obstructive sleep apnea (adult) (pediatric); Z96.642 Presence of left artificial hip joint; Z95.810 Presence of automatic (implantable) cardiac defibrillator; Z79.4 Long term (current) use of insulin; Z79.01 Long term (current) use of anticoagulants; Z95.0 Presence of cardiac pacemaker; Z87.891 Personal history of nicotine dependence
CPT/HCPCS: 70450; 71010; 71250; 76937; 80048; 80053; 80202; 81001; 82565; 82948; 83605; 85025; 85610; 85730; 86403; 87040; 87070; 87147; 87186; 93971; 94150; 94640; 94664; 96365; 96368; J2543; J3370; J7030; J7040; J7050